=== PATIENT | female | born 1945 | race American Indian/Alaskan Native ===

== ENCOUNTER 2017-02-05 | Emergency (ER) | payer MEDICARE ==
[2017-02-05 01:30] LABS: Hematocrit 47.3 % (30.3-42.9); Hemoglobin 15.6 gm/dl (10.1-14.3); Mean Corpuscular HGB Conc 33 % (30-34); Mean Corpuscular Hemoglobin 29 pg (28-32); Mean Corpuscular Volume 87 fl (79-97); Platelet Count 124 K/mm3 (140-440); Red Blood Count 5.41 M/mm3 (3.65-5.03); Red Cell Distribution Width 13.5 % (13.2-15.2); White Blood Count 2.5 K/mm3 (4.5-11.0)
[2017-02-05 01:38] LABS: Anion Gap 17 mmol/L; BUN/Creatinine Ratio 6.66; Blood Urea Nitrogen 6 mg/dL (7-17); Calcium 8.5 mg/dL (8.4-10.2); Carbon Dioxide 26 mmol/L (22-30); Chloride 97.5 mmol/L (98-107); Glucose 92 mg/dL (65-100); Potassium 3.4 mmol/L (3.6-5.0); Sodium 137 mmol/L (137-145)
[2017-02-05 03:42] LABS: Basophils % (Manual) 0 % (0.0-1.8); Blastocytes % (Manual) 0 %; Diff Status Complete; Eosinophils % (Manual) 0 % (0.0-4.3); Platelet Estimate Appears Decreased; RBC Morphology Normal
--- NOTE | 2017-02-05 04:34 | Emergency Department Report ---
HPI - General Chief Complaint: Upper Respiratory Infection Time Seen by Provider: 02/05/17 04:12 - HPI HPI: This is a 71-year-old female who presents to the emergency department from home with complaint of a 3 day history of sinus congestion and drainage and a productive cough. She denies any fever, chest pain, shortness of breath, back pain. The patient says that the same set of symptoms happens every year due to allergies and usually she is able to get in to see her physician, Dr. Franklin, but she "let it go on to long this time." Patient has been using some Flonase and Claritin. The Claritin seems to help but does not resolve her symptoms. No recent travel or sick contacts at home. She has a past medical history of arthritis, remote asthma, GERD, hypertension. She denies any history of CA, CVA , PE/DVT. ED Past Medical Hx - Past Medical History Previous Medical History?: Yes Hx Hypertension: Yes Hx GERD: Yes Hx Arthritis: Yes Hx Seizures: No Hx Asthma: Yes (no problem in 1 year) Hx HIV: No - Surgical History Past Surgical History?: Yes Hx Breast Surgery: Yes (LEFT BREAST LUMPECTOMY) Additional Surgical History: hysterectomy - Social History Smoking Status: Never Smoker Substance Use Type: None - Medications Home Medications: Home Medications Medication Instructions Recorded Confirmed Last Taken Type amLODIPine [Norvasc] 10 mg PO DAILY 05/14/14 11/26/15 11/25/15 History Meloxicam 7.5 mg PO PRN PRN 11/18/15 11/26/15 11/24/15 History Caplet 1 cap PO DAILY 11/18/15 11/26/15 11/24/15 History Benzonatate [Tessalon Perles] 100 mg PO Q8HR PRN #20 capsule 02/05/17 Unknown Rx ED Review of Systems ROS: Stated complaint: SINUS ROBERTS, CHILLS Other details as noted in HPI Comment: All other systems reviewed and negative Constitutional: denies: chills, fever Eyes: denies: eye pain, eye discharge, vision change ENT: congestion. denies: throat pain Respiratory: cough. denies: shortness of breath Cardiovascular: denies: chest pain, palpitations Gastrointestinal: denies: abdominal pain, nausea, diarrhea Genitourinary: denies: urgency, dysuria, discharge Musculoskeletal: denies: back pain, joint swelling, arthralgia Skin: denies: rash, lesions Neurological: denies: headache, weakness, paresthesias Physical Exam - Physical Exam Vital Signs: Vital Signs 02/05/17 02/05/17 00:19 03:25 Temperature 98.4 F 98.5 F Pulse Rate 68 78 Respiratory 18 16 Rate Blood Pressure 144/82 Blood Pressure 149/75 [Right] O2 Sat by Pulse 99 96 Oximetry Physical Exam: GENERAL: The patient is well-developed well-nourished. HEENT: Normocephalic. Atraumatic. Extraocular motions are intact. Patient has moist mucous membranes. Pupils equal reactive to light bilaterally. Patient has clear drainage coming from the bilateral nares and is constantly sniffing. Oropharynx is clear. NECK: Supple. Trachea is midline. CHEST/LUNGS: Clear to auscultation. No tachypnea or accessory muscle use. There is a productive sounding cough heard during examination. There is no respiratory distress noted. HEART/CARDIOVASCULAR: Regular. There is no tachycardia. There is no gallop rub or murmur. ABDOMEN: Abdomen is soft, nontender. Patient has normal bowel sounds. There is no abdominal distention. SKIN: Skin is warm and dry. NEURO: The patient is awake, alert, and oriented. The patient is cooperative. The patient has no focal neurologic deficits. The patient has normal speech. MUSCULOSKELETAL: There is no tenderness or deformity. There is no limitation range of motion. There is no evidence of acute injury. ED Course Vital Signs 02/05/17 02/05/17 00:19 03:25 Temperature 98.4 F 98.5 F Pulse Rate 68 78 Respiratory 18 16 Rate Blood Pressure 144/82 Blood Pressure 149/75 [Right] O2 Sat by Pulse 99 96 Oximetry ED Medical Decision Making - Lab Data Result diagrams: 02/05/17 00:46 02/05/17 00:46 - EKG Data -: EKG Interpreted by Id EKG shows normal: sinus rhythm, axis, intervals, QRS complexes, ST-T waves (T wave inversions to leads V4 and V5) Rate: normal - EKG Data When compared to previous EKG there are: changes noted (t wave inversions to leads v4 and v5) Interpretation: other (sinus rhythm, normal axis, T-wave inversions in lead V4 and V5, no ST elevation CA) - Radiology Data Radiology results: image reviewed interpreted by me: Chest x-ray did not show any acute process. Heart is normal shape and size. No effusions. No pneumothorax. No signs of pneumonia seen. - Medical Decision Making 71-year-old female presents with 3 day history of sinus drainage and congestion and a productive cough. Patient denies any chest pain or significant shortness of breath. Patient's EKG does not show any signs of ST elevation CA. Chest x- ray does not show any pneumonia or any other acute process. Patient's labs and an unremarkable including a negative troponin. Patient is adamant that she is having either a sinus infection or a response to environmental allergies. Patient is already on low days and Claritin. She was given a dose of steroids to help with some of her chest inflammation and sinus inflammation. I do not believe the patient needs antibiotics at this time. Vital signs are stable including being afebrile. We discussed picking up Coricidin HBP. She will follow-up with Dr. Jamie ewing today and will return to the ER with any worsening of her symptoms or any acute distress. - Differential Diagnosis sinusitis, pneumonia, viral syndrome, asthma, bronchitis Critical Care Time: No Critical care attestation.: If time is entered above; I have spent that time in minutes in the direct care of this critically ill patient, excluding procedure time. ED Disposition Clinical Impression: Sinus congestion, Sinus drainage, Cough Allergic rhinitis Qualifiers: Allergic rhinitis seasonality: seasonal Allergic rhinitis trigger: unspecified Qualified Code(s): J30.2 - Other seasonal allergic rhinitis Disposition: DISCHARGED TO HOME OR SELFCARE Is pt being admited?: No Condition: Stable Instructions: Allergic Rhinitis (ED), Bronchospasm (ED), Sinusitis (ED) Additional Instructions: Please follow-up with Dr. Muriel ewing today. Continue with your Flonase and Claritin. I have written you for a cough medication to try. Return to the emergency department with any intractable fever, shortness of breath, chest pain , or any acute distress. Prescriptions: Benzonatate [Tessalon Perles] 100 mg PO Q8HR PRN #20 capsule PRN Reason: Cough Referrals: RONDA FRANKLIN MD [Primary Care Provider] - 3-5 Days Time of Disposition: 04:45
[2017-02-05 05:49] VITALS: BP 138/72
--- NOTE | 2017-02-05 08:46 | XRay Report ---
Chest 2 views: Compared to 04/11/15. The History: Cough. Findings: Normal cardiomediastinal silhouette the trachea is midline. Circumscribed nodular density right upper lobe without interval change. Mild COPD. Impression: No significant interval change. The
== END 2017-02-05 05:49 | disposition home or self-care (01) ==
LOC: ED
DX: J34.89 Other specified disorders of nose and nasal sinuses (principal); R09.81 Nasal congestion; J30.2 Other seasonal allergic rhinitis; R05 Cough; I10 Essential (primary) hypertension; K21.9 Gastro-esophageal reflux disease without esophagitis; M19.90 Unspecified osteoarthritis, unspecified site; J45.909 Unspecified asthma, uncomplicated; Z90.710 Acquired absence of both cervix and uterus
CPT/HCPCS: 36415; 71020; 80048; 84484; 85007; 85025; 93005; 93010; 96372; 99285; J2930

== ENCOUNTER 2017-02-13 12:51 | Outpatient (CLI) | payer MEDICARE ==
--- NOTE | 2017-02-13 14:32 | Mammography Report ---
BILATERAL MAMMOGRAM: FINDINGS: The breast tissue is heterogeneously dense, which could obscure detection of small masses (approximately 50%-75% glandular). No mass, distortion, suspicious calcification, or skin change is seen. There are no significant changes when compared to her prior examination in April 2014. CAD was utilized. IMPRESSION: Negative mammogram. There is no mammographic evidence of malignancy. RECOMMENDATION: Follow-up per ACS guidelines. BI-RADS CATEGORY: 1 = Negative ACR BI-RADS MAMMOGRAPHIC CODES: 0 = Needs additional imaging evaluation; 1 = Negative; 2 = Benign; 3 = Probably benign; 4 = Suspicious; 5 = Malignant; 6 = Known biopsy-proven malignancy COMMENT: 1. Dense breast tissue, i.e., adenosis, fibrocystic changes, etc., may obscure an underlying neoplasm. 2. Approximately 10% of cancers are not detected with mammography. 3. A negative mammography report should not delay biopsy if a clinically suspicious mass is present. COMMENT: Patient follow-up letters are generated in [employer].
== END 2017-02-13 12:52 | disposition home or self-care (01) ==
LOC: MAMMO 12:51
PROVIDERS: ATTEND Obstetrics & Gynecology Gynecology
DX: Z12.31 Encounter for screening mammogram for malignant neoplasm of breast (principal)
CPT/HCPCS: 77067; G0202

== ENCOUNTER 2019-07-19 14:46 | Emergency (ER) | payer MEDICARE ==
[2019-07-19] MEDS ORDERED: SUBLIMAZE IV ONE ×2 (15:44→19:00)
--- NOTE | 2019-07-19 15:54 | XRay Report ---
AP VIEW RIGHT KNEE INDICATION: Pain in the right knee. COMPARISON: No relevant prior imaging study available. FINDINGS: On this single portable view, no acute, displaced fracture is identified. Advanced osteoarthrosis is seen at the medial and lateral tibiofemoral compartments. IMPRESSION: 1. Limited study. No acute fracture is identified. Complete exam with oblique and lateral views woul d be useful. Signer Name: Gui Seth MD Signed: 07/19/2019 3:50 PM Workstation Name: [id number]
--- NOTE | 2019-07-19 16:10 | Emergency Department Report ---
ED General Adult HPI - General Chief complaint: Extremity Injury, Lower Stated complaint: R KNEE PAIN Time Seen by Provider: 07/19/19 15:44 Source: patient, EMS Mode of arrival: Stretcher Limitations: No Limitations - History of Present Illness Initial comments: 74-year-old female who states that she was sitting on the floor and when she got up she felt her knee pop. She complains of excruciating right knee pain. She mentioned some degree of burning from her right hip to her toe but did not specifically complain of hip pain to me. She does not report any other injury or complaint. -: Sudden Severity scale (0 -10): 10 Quality: aching - Related Data Home Medications Medication Instructions Recorded Confirmed Last Taken amLODIPine [Norvasc] 10 mg PO DAILY 05/14/14 11/26/15 11/25/15 Meloxicam 7.5 mg PO PRN PRN 11/18/15 11/26/15 11/24/15 Caplet 1 cap PO DAILY 11/18/15 11/26/15 11/24/15 Previous Rx's Medication Instructions Recorded Last Taken Type Benzonatate [Tessalon Perles] 100 mg PO Q8HR PRN #20 capsule 02/05/17 Unknown Rx Allergies Allergy/AdvReac Type Severity Reaction Status Date / Time ampicillin Allergy Swelling Verified 11/18/15 12:29 cephalexin Allergy Swelling Verified 11/18/15 12:29 lisinopril Allergy Angioedema Verified 11/18/15 12:29 oxycodone Allergy Swelling Verified 11/18/15 12:29 Penicillins Allergy Swelling Unverified 04/06/14 11:34 Sulfa (Sulfonamide Allergy Hives Unverified 04/06/14 11:34 Antibiotics) ED Review of Systems ROS: Stated complaint: R KNEE PAIN Other details as noted in HPI Comment: Unobtainable due to pts medical conditions (patient is too anxious for full history) ED Past Medical Hx - Past Medical History Hx Hypertension: Yes Hx GERD: Yes Hx Arthritis: Yes Hx Seizures: No Hx Asthma: Yes (no problem in 1 year) Hx HIV: No - Surgical History Hx Breast Surgery: Yes (LEFT BREAST LUMPECTOMY) Additional Surgical History: hysterectomy - Social History Smoking Status: Current Every Day Smoker Substance Use Type: Alcohol - Medications Home Medications: Home Medications Medication Instructions Recorded Confirmed Last Taken Type amLODIPine [Norvasc] 10 mg PO DAILY 05/14/14 11/26/15 11/25/15 History Meloxicam 7.5 mg PO PRN PRN 11/18/15 11/26/15 11/24/15 History Caplet 1 cap PO DAILY 11/18/15 11/26/15 11/24/15 History Benzonatate [Tessalon Perles] 100 mg PO Q8HR PRN #20 capsule 02/05/17 Unknown Rx ED Physical Exam - General Limitations: Physical Limitation, Other General appearance: alert, in no apparent distress - Head Head exam: Present: atraumatic, normocephalic - Eye Eye exam: Present: normal appearance. Absent: scleral icterus - ENT ENT exam: Present: mucous membranes moist - Neck Neck exam: Present: normal inspection - Respiratory Respiratory exam: Present: normal lung sounds bilaterally. Absent: respiratory distress - Cardiovascular Cardiovascular Exam: Present: regular rate, normal rhythm. Absent: systolic murmur, diastolic murmur, rubs, gallop - GI/Abdominal GI/Abdominal exam: Present: soft, normal bowel sounds. Absent: distended, tenderness, guarding, rebound - Extremities Exam Extremities exam: Present: other (patient is holding her right knee flexed position. However the patella appears to be midline and the hip has a full range of motion. There is no gross knee effusion.) - Neurological Exam Neurological exam: Present: alert, oriented X3, CN II-XII intact. Absent: motor sensory deficit - Psychiatric Psychiatric exam: Present: agitated (somewhat), anxious - Skin Skin exam: Present: warm, dry, intact, normal color. Absent: rash ED Course Vital Signs 07/19/19 15:25 Temperature 98.4 F Pulse Rate 83 Respiratory 19 Rate Blood Pressure 129/72 [Left] O2 Sat by Pulse 99 Oximetry - Reevaluation(s) Reevaluation #1: Patient states that she still has mild residual pain. She looks entirely comfortable. She has full range of motion of her knee which is apparently stable and without deformity. There is no obvious ligamentous injury. There is mild soft tissue swelling. I didn't see anything apparent on her CT images. Awaiting radiology interpret ation. 07/19/19 19:01 Critical care attestation.: If time is entered above; I have spent that time in minutes in the direct care of this critically ill patient, excluding procedure time. ED Disposition Condition: Stable
--- NOTE | 2019-07-19 19:04 | Cat Scan Report ---
CT right femur without contrast INDICATION : fall pain hip to knee. TECHNIQUE: Axial imaging performed through the right femur without the use of contrast. All CT scan s at this location are performed using CT dose reduction for ALARA by means of automated exposure con trol. COMPARISON: Right knee series from today FINDINGS: Each of the series is excluding portions of both the right hip and right knee. Within these constraints, no gross right hip or knee fracture is identified. There is advanced tricompartmental D GREGG in the knee with no joint effusion. Mild degenerative changes present in the hip. No acute musculo tendinous abnormality identified. Moderate multifocal atherosclerotic disease is present throughout t he SFA and [employer]NAGER [employer]. IMPRESSION: 1. Limited exam as above with no acute abnormality identified. If there is persistent pain, recommend MRI follow-up of a specific joint. 2. Degenerative changes greatest in the knee. Signer Name: Pritesh Modi MD Signed: 07/19/2019 6:59 PM Workstation Name: [id number]
--- NOTE | 2019-07-19 19:17 | Emergency Department Report ---
ED General Adult HPI - General Chief complaint: Extremity Injury, Lower Stated complaint: R KNEE PAIN Time Seen by Provider: 07/19/19 15:44 Source: patient, EMS Mode of arrival: Stretcher Limitations: Physical Limitation, Other - History of Present Illness Initial comments: 74-year-old female states she was sitting on the floor and tried to get up. She experienced her knee popping and excruciating pain. She had a vague sensation of burning from her hip to her toes but did not complain of any back discomfort whatsoever. Severity scale (0 -10): 10 Quality: aching - Related Data Home Medications Medication Instructions Recorded Confirmed Last Taken amLODIPine [Norvasc] 10 mg PO DAILY 05/14/14 11/26/15 11/25/15 Meloxicam 7.5 mg PO PRN PRN 11/18/15 11/26/15 11/24/15 Caplet 1 cap PO DAILY 11/18/15 11/26/15 11/24/15 Previous Rx's Medication Instructions Recorded Last Taken Type Benzonatate [Tessalon Perles] 100 mg PO Q8HR PRN #20 capsule 02/05/17 Unknown Rx traMADol [Ultram] 50 mg PO Q6HR PRN #14 tablet 07/19/19 Unknown Rx Allergies Allergy/AdvReac Type Severity Reaction Status Date / Time ampicillin Allergy Swelling Verified 11/18/15 12:29 cephalexin Allergy Swelling Verified 11/18/15 12:29 lisinopril Allergy Angioedema Verified 11/18/15 12:29 oxycodone Allergy Swelling Verified 11/18/15 12:29 Penicillins Allergy Swelling Unverified 04/06/14 11:34 Sulfa (Sulfonamide Allergy Hives Unverified 04/06/14 11:34 Antibiotics) ED Review of Systems ROS: Stated complaint: R KNEE PAIN Other details as noted in HPI ED Past Medical Hx - Past Medical History Hx Hypertension: Yes Hx GERD: Yes Hx Arthritis: Yes Hx Seizures: No Hx Asthma: Yes (no problem in 1 year) Hx HIV: No - Surgical History Hx Breast Surgery: Yes (LEFT BREAST LUMPECTOMY) Additional Surgical History: hysterectomy - Social History Smoking Status: Current Every Day Smoker Substance Use Type: Alcohol - Medications Home Medications: Home Medications Medication Instructions Recorded Confirmed Last Taken Type amLODIPine [Norvasc] 10 mg PO DAILY 05/14/14 11/26/15 11/25/15 History Meloxicam 7.5 mg PO PRN PRN 11/18/15 11/26/15 11/24/15 History Caplet 1 cap PO DAILY 11/18/15 11/26/15 11/24/15 History Benzonatate [Tessalon Perles] 100 mg PO Q8HR PRN #20 capsule 02/05/17 Unknown Rx traMADol [Ultram] 50 mg PO Q6HR PRN #14 tablet 07/19/19 Unknown Rx ED Physical Exam - General Limitations: Physical Limitation, Other General appearance: alert, in no apparent distress ED Course Vital Signs 07/19/19 15:25 Temperature 98.4 F Pulse Rate 83 Respiratory 19 Rate Blood Pressure 129/72 [Left] O2 Sat by Pulse 99 Oximetry - Reevaluation(s) Reevaluation #1: It is possible the patient had a spontaneously reduced the dislocation. However she did not present with evidence of a dislocation. Further evaluation with orthopedist is recommended. 07/19/19 19:19 ED Medical Decision Making - Radiology Data Radiology results: report reviewed (CT and x-ray shows no acute process) Critical care attestation.: If time is entered above; I have spent that time in minutes in the direct care of this critically ill patient, excluding procedure time. ED Disposition Clinical Impression: Contusion of right knee Qualifiers: Encounter type: initial encounter Qualified Code(s): S80.01XA - Contusion of right knee, initial encounter Disposition: - TO HOME OR SELFCARE Is pt being admited?: No Does the pt Need Aspirin: No Condition: Stable Instructions: Contusion in Adults (ED) Additional Instructions: Follow-up with orthopedist Dr. Lei. Rx as needed for pain. Return any acute change or problem. Rest knee. Prescriptions: traMADol [Ultram] 50 mg PO Q6HR PRN #14 tablet PRN Reason: Pain Referrals: SUMANTH LEI MD [Staff Physician] - 3-5 Days Time of Disposition: 19:19
[2019-07-19 20:42] VITALS: BP 136/74
== END 2019-07-19 20:30 | disposition home or self-care (01) ==
LOC: ED 14:46
DX: S80.01XA Contusion of right knee, initial encounter (principal); I10 Essential (primary) hypertension; K21.9 Gastro-esophageal reflux disease without esophagitis; M19.90 Unspecified osteoarthritis, unspecified site; J45.909 Unspecified asthma, uncomplicated; F17.200 Nicotine dependence, unspecified, uncomplicated; Z90.710 Acquired absence of both cervix and uterus; Z88.1 Allergy status to other antibiotic agents; Z88.0 Allergy status to penicillin; Z88.2 Allergy status to sulfonamides; Z88.8 Allergy status to other drugs, medicaments and biological substances; Z79.899 Other long term (current) drug therapy; X50.9XXA Other and unspecified overexertion or strenuous movements or postures, initial encounter; Y93.89 Activity, other specified; Y92.89 Other specified places as the place of occurrence of the external cause; Y99.8 Other external cause status
CPT/HCPCS: 73560; 73700; 96374; 96376; 99285; J3010

== ENCOUNTER 2019-08-25 09:40 | Outpatient (CLI) | payer MEDICARE ==
--- NOTE | 2019-08-25 10:29 | Cat Scan Report ---
CT CHEST WITHOUT CONTRAST INDICATION / CLINICAL INFORMATION: MASS OF UPPER LOBE OF RIGHT LUNG 786.6. TECHNIQUE: Axial CT images were obtained through the chest without contrast. Sagittal and coronal reformatted im ages. All CT scans at this location are performed using CT dose reduction for ALARA by means of autom ated exposure control. COMPARISON: Chest x-ray dated 02/05/2017 FINDINGS: HEART: The heart is normal size. No pericardial abnormality. Mild coronary artery and aortic valve ca lcifications are noted. THORACIC AORTA: No significant abnormality. Mild scattered atherosclerotic plaques. MEDIASTINUM and LUCY: No significant abnormality. LUNGS: No acute air space or interstitial disease. Partially calcified 9 mm granuloma in the right u pper lobe is noted. No suspicious pulmonary nodule or mass. PLEURA: No significant pleural effusion. No pneumothorax. SKELETAL SYSTEM: Intact. Mild to moderate multilevel thoracic spondylosis. No fracture or suspicious bony lesion. UPPER ABDOMEN: No significant abnormality. ADDITIONAL FINDINGS: None. IMPRESSION: Right upper lobe partially calcified granuloma measuring 9 mm. No suspicious pulmonary nodule or mas s is identified. Signer Name: Reji Guo Jr, MD Signed: 08/25/2019 10:25 AM Workstation Name: [id number]
== END 2019-08-25 09:41 | disposition home or self-care (01) ==
LOC: CT 09:40
PROVIDERS: ATTEND Internal Medicine
DX: I70.0 Atherosclerosis of aorta (principal); I25.10 Atherosclerotic heart disease of native coronary artery without angina pectoris; R91.8 Other nonspecific abnormal finding of lung field; M47.814 Spondylosis without myelopathy or radiculopathy, thoracic region; E78.00 Pure hypercholesterolemia, unspecified; I10 Essential (primary) hypertension; J45.909 Unspecified asthma, uncomplicated; K21.9 Gastro-esophageal reflux disease without esophagitis; Z90.710 Acquired absence of both cervix and uterus
CPT/HCPCS: 71250

== ENCOUNTER 2019-09-29 22:37 | Emergency (ER) | payer MEDICARE ==
[2019-09-29] MEDS ORDERED: ASPIRIN 325 MG TAB PO ONE (23:36)
[2019-09-30 00:20] LABS: Basophils # (Auto) 0.1 K/mm3 (0.0-0.1); Basophils % (Auto) 1.5 % (0.0-1.8); Eosinophils # (Auto) 0.3 K/mm3 (0.0-0.4); Eosinophils % (Auto) 6.9 % (0.0-4.3); Hematocrit 40.1 % (30.3-42.9); Hemoglobin 13.7 gm/dl (10.1-14.3); Lymphocytes # (Auto) 1.5 K/mm3 (1.2-5.4); Lymphocytes % (Auto) 32.1 % (13.4-35.0); Mean Corpuscular HGB Conc 34 % (30-34); Mean Corpuscular Volume 88 fl (79-97); Monocytes # (Auto) 0.4 K/mm3 (0.0-0.8); Monocytes % (Auto) 9.4 % (0.0-7.3); Platelet Count 180 K/mm3 (140-440); Red Blood Count 4.54 M/mm3 (3.65-5.03); Red Cell Distribution Width 13.4 % (13.2-15.2)
--- NOTE | 2019-09-30 00:26 | XRay Report ---
CHEST 1 VIEW, 09/30/2019 12:03 AM CLINICAL INFORMATION/INDICATION: Right-sided chest pain for 5 days COMPARISON: Chest radiograph, 02/05/2017 FINDINGS: SUPPORT DEVICES: None. HEART: The cardiac silhouette is normal in size. LUNGS/PLEURA: The lungs are hyperexpanded with chronic interstitial change. No superimposed airspace consolidation or pleural effusion is identified. ADDITIONAL FINDINGS: No additional acute findings. IMPRESSION: 1. No evidence of acute cardiopulmonary process. Signer Name: Anusha Max MD Signed: 09/30/2019 12:22 AM Workstation Name: [id number]
[2019-09-30 00:34] LABS: BUN/Creatinine Ratio 17; Blood Urea Nitrogen 19 mg/dL (7-17); Hemolysis Index 3
[2019-09-30] MEDS ORDERED: traMADol 50 MG TAB PO ONE (01:03)
--- NOTE | 2019-09-30 02:10 | Cat Scan Report ---
CTA CHEST WITH IV CONTRAST, 09/30/2019 INDICATION: Chest pain TECHNIQUE: Axial CT images were obtained through the chest after injection of IV contrast. Coronal oblique 2-D reconstruction images were produced. 3 plane MIP reconstruction images were produced at an [employer] workstation. All CTs at this facility utilize dose reduction techniques including automated expos ure control, iterative reconstruction and weight based dosing when appropriate to reduce patient radi ation dose to as low as reasonable achievable. COMPARISON: CT of the chest without contrast, 08/25/2019 FINDINGS: There is no evidence of central or segmental filling defect within the pulmonary arteries to suggest pulmonary embolism. The heart is normal in size. The thoracic aorta is normal in caliber. Evaluation of the lung parenchyma demonstrates no evidence of acute airspace disease or pleural effusion. The 9 mm right upper lobe mass is again noted and contains a speck of calcium. Limited imaging of the upper abdomen demonstrates a small hiatal hernia. Evaluation of bony structures demonstrates no evidence of acute bony abnormality. There are moderate bony degenerative changes and kyphosis of the thoracic spine. IMPRESSION: 1. No evidence of pulmonary embolism or acute parenchymal process. 2. Subcentimeter right upper lobe nodule containing calcium which is favored to represent a benign pr ocess such as a partially calcified granuloma. Signer Name: Anusha Max MD Signed: 09/30/2019 2:06 AM Workstation Name: [id number]
--- NOTE | 2019-09-30 02:33 | Emergency Department Report ---
ED Chest Pain HPI - General Chief Complaint: Chest Pain Stated Complaint: CHEST PAIN Time Seen by Provider: 09/30/19 01:01 Source: patient Mode of arrival: Ambulatory Limitations: No Limitations - History of Present Illness Initial Comments: Mrs. Orozco is a 74 yo female with history of hypertension and marijuana use who presents with right-sided chest pain and back pain for the past week. Pain began in her right upper back rating to the right chest. Changes with movement. 5/10 in severity. Achy sharp in nature. She has a dry nonproductive cough. PCP is Dr. Ronda Franklin. Complaint: chest pain -: Gradual, week(s) (1) Onset: during rest Pain Location: right chest Pain Radiation: back Severity: mild Severity scale (0 -10): 5 Quality: aching, sharp, dull Consistency: constant Improves With: nothing Worsens With: movement - Related Data Home Medications Medication Instructions Recorded Confirmed Last Taken amLODIPine 10 mg PO DAILY 05/14/14 11/26/15 11/25/15 Meloxicam 7.5 mg PO PRN PRN 11/18/15 11/26/15 11/24/15 Caplet 1 cap PO DAILY 11/18/15 11/26/15 11/24/15 Previous Rx's Medication Instructions Recorded Last Taken Type Benzonatate [Tessalon Perles] 100 mg PO Q8HR PRN #20 capsule 02/05/17 Unknown Rx traMADoL [Ultram] 50 mg PO Q6HR PRN #14 tablet 07/19/19 Unknown Rx traMADoL [Ultram 50 MG tab] 50 mg PO Q6HR PRN #10 tablet 09/30/19 Unknown Rx Allergies Allergy/AdvReac Type Severity Reaction Status Date / Time ampicillin Allergy Swelling Verified 09/30/19 01:17 aspirin Allergy Hives Verified 09/30/19 01:17 cephalexin Allergy Swelling Verified 09/30/19 01:17 lisinopril Allergy Angioedema Verified 09/30/19 01:17 oxycodone Allergy Swelling Verified 09/30/19 01:17 Penicillins Allergy Swelling Unverified 09/30/19 01:17 Sulfa (Sulfonamide Allergy Hives Unverified 09/30/19 01:17 Antibiotics) Heart Score - HEART Score History: Slightly suspicious EKG: Normal Age: 45-65 Risk factors: 1-2 risk factors Troponin: < normal limit HEART Score: 2 ED Review of Systems ROS: Stated complaint: CHEST PAIN Other details as noted in HPI Comment: All other systems reviewed and negative Constitutional: denies: fever, malaise Respiratory: cough. denies: shortness of breath Cardiovascular: chest pain ED Past Medical Hx - Past Medical History Previous Medical History?: Yes Hx Hypertension: Yes Hx GERD: Yes Hx Arthritis: Yes Hx Seizures: No Hx Asthma: Yes (no problem in 1 year) Hx HIV: No - Surgical History Hx Breast Surgery: Yes (Right breast Lumpectomy) Additional Surgical History: hysterectomy - Social History Smoking Status: Current Every Day Smoker Substance Use Type: Marijuana - Medications Home Medications: Home Medications Medication Instructions Recorded Confirmed Last Taken Type amLODIPine 10 mg PO DAILY 05/14/14 11/26/15 11/25/15 History Meloxicam 7.5 mg PO PRN PRN 11/18/15 11/26/15 11/24/15 History Caplet 1 cap PO DAILY 11/18/15 11/26/15 11/24/15 History Benzonatate [Tessalon Perles] 100 mg PO Q8HR PRN #20 capsule 02/05/17 Unknown Rx traMADoL [Ultram] 50 mg PO Q6HR PRN #14 tablet 07/19/19 Unknown Rx traMADoL [Ultram 50 MG tab] 50 mg PO Q6HR PRN #10 tablet 09/30/19 Unknown Rx ED Physical Exam - General Limitations: No Limitations General appearance: alert, in no apparent distress, other (looks younger than stated age) - Head Head exam: Present: atraumatic, normocephalic - Eye Eye exam: Present: normal appearance - ENT ENT exam: Present: mucous membranes moist - Neck Neck exam: Present: normal inspection, full ROM - Respiratory Respiratory exam: Present: normal lung sounds bilaterally. Absent: respiratory distress, wheezes, rales, rhonchi - Cardiovascular Cardiovascular Exam: Present: regular rate, normal rhythm, normal heart sounds. Absent: systolic murmur, diastolic murmur, rubs, gallop - GI/Abdominal GI/Abdominal exam: Present: soft, normal bowel sounds. Absent: distended, tenderness, guarding, rebound - Extremities Exam Extremities exam: Present: normal inspection - Neurological Exam Neurological exam: Present: alert, oriented X3 - Psychiatric Psychiatric exam: Present: normal affect, normal mood - Skin Skin exam: Present: warm, dry, intact, normal color. Absent: rash ED Course Vital Signs 09/29/19 09/29/19 22:50 23:33 Temperature 98.5 F 98.5 F Pulse Rate 68 68 Respiratory 18 18 Rate Blood Pressure 142/62 142/62 O2 Sat by Pulse 100 100 Oximetry ED Medical Decision Making - Lab Data Result diagrams: 09/29/19 23:50 09/29/19 23:50 Laboratory Results - last 24 hr 09/29/19 09/29/19 23:50 23:50 WBC 4.5 RBC 4.54 Hgb 13.7 Hct 40.1 MCV 88 MCH 30 MCHC 34 RDW 13.4 Plt Count 180 Lymph % (Auto) 32.1 Henry % (Auto) 9.4 H Eos % (Auto) 6.9 H Baso % (Auto) 1.5 Lymph # 1.5 Henry # 0.4 Eos # 0.3 Baso # 0.1 Seg Neutrophils % 50.1 Seg Neutrophils # 2.3 Sodium 140 Potassium 4.3 Chloride 103.2 Carbon Dioxide 26 Anion Gap 15 BUN 19 H Creatinine 1.1 Estimated GFR 59 BUN/Creatinine Ratio 17 Glucose 102 H Troponin T < 0.010 - EKG Data EKG shows normal: sinus rhythm, axis, intervals, QRS complexes, ST-T waves Rate: normal - EKG Data Interpretation: normal EKG - Radiology Data Radiology results: report reviewed CT angiogram which has no evidence of pulmonary embolism or acute parenchymal process, lung nodule right upper lobe - Medical Decision Making 1. Right-sided chest pain back pain atypical for acute coronary syndrome. Heart score is 1. Normal chest x-ray. Troponin level [address] angiogram without evidence of venous thrombolic embolism Small lung nodule seen. Given reassurance. Prescribed tramadol. For musculoskeletal pain Referred to Dr. Franklin for further treatment and evaluation. Prescribed tramadol for pain. No indication of pneumonia, pneumothorax, pulmonary embolism, aortic dissection acute coronary syndrome. Critical care attestation.: If time is entered above; I have spent that time in minutes in the direct care of this critically ill patient, excluding procedure time. ED Disposition Clinical Impression: Right-sided chest wall pain, Back pain, Lung nodule Disposition: TO HOME OR SELFCARE Is pt being admited?: No Does the pt Need Aspirin: No Condition: Stable Instructions: Chest Pain (ED) Additional Instructions: You have a small likely benign lung nodule on the right upper lobe. He will need a repeat chest x-ray in 3 months. Prescriptions: traMADoL [Ultram 50 MG tab] 50 mg PO Q6HR PRN #10 tablet PRN Reason: Pain Referrals: RONDA FRANKLIN MD [Staff Physician] - 3-5 Days
[2019-09-30 03:46] VITALS: BP 138/75
== END 2019-09-30 03:10 | disposition home or self-care (01) ==
LOC: ED 22:37
DX: R07.89 Other chest pain (principal); M54.9 Dorsalgia, unspecified; R91.8 Other nonspecific abnormal finding of lung field; I10 Essential (primary) hypertension; K21.9 Gastro-esophageal reflux disease without esophagitis; M19.90 Unspecified osteoarthritis, unspecified site; J45.909 Unspecified asthma, uncomplicated; F17.200 Nicotine dependence, unspecified, uncomplicated; F12.10 Cannabis abuse, uncomplicated; Z79.899 Other long term (current) drug therapy; Z98.890 Other specified postprocedural states; Z88.0 Allergy status to penicillin; Z88.2 Allergy status to sulfonamides; Z88.1 Allergy status to other antibiotic agents; Z88.8 Allergy status to other drugs, medicaments and biological substances
CPT/HCPCS: 36415; 71045; 71275; 80048; 84484; 85025; 93005; 93010; 99285; Q9967

== ENCOUNTER 2020-04-06 08:08 | Emergency (ER) | payer MEDICARE ==
[2020-04-06 08:16] VITALS: BP 152/70
--- NOTE | 2020-04-06 09:19 | XRay Report ---
RIGHT KNEE 3 VIEWS INDICATION / CLINICAL INFORMATION: pain, decreased ROM, swelling COMPARISON: 11/18/2018 FINDINGS: BONES / JOINT(S): There is degenerative change involving all 3 compartments. The degree of degenerati on appears similar to the prior study from July 2019. No fracture or dislocation is seen. SOFT TISSUES: No significant abnormality. ADDITIONAL FINDINGS: None. Signer Name: Cristhian Al MD Signed: 04/06/2020 9:15 AM Workstation Name: [id number]
--- NOTE | 2020-04-06 10:58 | Emergency Department Report ---
ED Lower Extremity HPI - General Chief Complaint: Extremity Injury, Lower Stated Complaint: FALL Time Seen by Provider: 04/06/20 10:18 Source: patient Mode of arrival: Ambulatory Limitations: No Limitations - History of Present Illness Initial Comments: 75-year-old F Bur[place] female that emerge department complaining of reemergence of her right knee pain started after she got out of the bed quickly. Reports no numbness or tingling, no fevers, chills, sweats, no lower extremity swelling MD Complaint: knee injury -: Gradual Injury: Knee: Right Type of Injury: unknown Place: home Severity: mild, moderate Worsens With: weight bearing Associated Symptoms: able to partially bear weight - Related Data Home Medications Medication Instructions Recorded Confirmed Last Taken amLODIPine 10 mg PO DAILY 05/14/14 11/26/15 11/25/15 Meloxicam 7.5 mg PO PRN PRN 11/18/15 11/26/15 11/24/15 Caplet 1 cap PO DAILY 11/18/15 11/26/15 11/24/15 Previous Rx's Medication Instructions Recorded Last Taken Type Benzonatate [Tessalon Perles] 100 mg PO Q8HR PRN #20 capsule 02/05/17 Unknown Rx traMADoL [Ultram 50 MG tab] 50 mg PO Q6HR PRN #10 tablet 09/30/19 Unknown Rx predniSONE [Deltasone] 20 mg PO QDAY #5 tab 04/06/20 Unknown Rx traMADoL [Ultram 50 MG tab] 50 mg PO Q6HR PRN #14 tablet 04/06/20 Unknown Rx Allergies Allergy/AdvReac Type Severity Reaction Status Date / Time ampicillin Allergy Swelling Verified 09/30/19 01:17 aspirin Allergy Hives Verified 09/30/19 01:17 cephalexin Allergy Swelling Verified 09/30/19 01:17 lisinopril Allergy Angioedema Verified 09/30/19 01:17 oxycodone Allergy Swelling Verified 09/30/19 01:17 Penicillins Allergy Swelling Unverified 09/30/19 01:17 Sulfa (Sulfonamide Allergy Hives Unverified 09/30/19 01:17 Antibiotics) ED Review of Systems ROS: Stated complaint: FALL Other details as noted in HPI Comment: All other systems reviewed and negative ED Past Medical Hx - Past Medical History Previous Medical History?: Yes Hx Hypertension: Yes Hx GERD: Yes Hx Arthritis: Yes Hx Seizures: No Hx Asthma: Yes (no problem in 1 year) Hx HIV: No - Surgical History Past Surgical History?: Yes Hx Breast Surgery: Yes (Right breast Lumpectomy) Additional Surgical History: hysterectomy - Social History Smoking Status: Never Smoker Substance Use Type: Marijuana - Medications Home Medications: Home Medications Medication Instructions Recorded Confirmed Last Taken Type amLODIPine 10 mg PO DAILY 05/14/14 11/26/15 11/25/15 History Meloxicam 7.5 mg PO PRN PRN 11/18/15 11/26/15 11/24/15 History Caplet 1 cap PO DAILY 11/18/15 11/26/15 11/24/15 History Benzonatate [Tessalon Perles] 100 mg PO Q8HR PRN #20 capsule 02/05/17 Unknown Rx traMADoL [Ultram 50 MG tab] 50 mg PO Q6HR PRN #10 tablet 09/30/19 Unknown Rx predniSONE [Deltasone] 20 mg PO QDAY #5 tab 04/06/20 Unknown Rx traMADoL [Ultram 50 MG tab] 50 mg PO Q6HR PRN #14 tablet 04/06/20 Unknown Rx ED Physical Exam - General Limitations: No Limitations General appearance: alert, in no apparent distress - Head Head exam: Present: atraumatic, normocephalic - Eye Eye exam: Present: normal appearance, PERRL Pupils: Present: normal accommodation - ENT ENT exam: Present: normal exam, normal orophraynx, mucous membranes moist - Neck Neck exam: Present: normal inspection - Respiratory Respiratory exam: Present: normal lung sounds bilaterally. Absent: respiratory distress - Cardiovascular Cardiovascular Exam: Present: regular rate, normal rhythm. Absent: systolic murmur, diastolic murmur, rubs, gallop - GI/Abdominal GI/Abdominal exam: Present: soft, normal bowel sounds - Extremities Exam Extremities exam: Present: normal inspection, tenderness (Right knee there is some crepitus with range of motion normal varus and valgus drawer test is negative. No effusion noted no ecchymosis. Pulses 2+) - Back Exam Back exam: Present: normal inspection - Neurological Exam Neurological exam: Present: alert, oriented X3 - Psychiatric Psychiatric exam: Present: normal affect, normal mood - Skin Skin exam: Present: warm, dry, intact, normal color. Absent: rash ED Course Vital Signs 04/06/20 08:14 Temperature 98.4 F Pulse Rate 70 Respiratory 18 Rate Blood Pressure 152/70 O2 Sat by Pulse 100 Oximetry Critical care attestation.: If time is entered above; I have spent that time in minutes in the direct care of this critically ill patient, excluding procedure time. ED Disposition Clinical Impression: Chronic knee pain Disposition: - TO HOME OR SELFCARE Is pt being admited?: No Does the pt Need Aspirin: No Condition: Stable Instructions: Arthralgia (ED) Prescriptions: predniSONE [Deltasone] 20 mg PO QDAY #5 tab traMADoL [Ultram 50 MG tab] 50 mg PO Q6HR PRN #14 tablet PRN Reason: Pain Referrals: RONDA FRANKLIN MD [Primary Care Provider] - 3-5 Days
== END 2020-04-06 11:32 | disposition home or self-care (01) ==
LOC: ED 08:08
DX: M25.561 Pain in right knee (principal); G89.29 Other chronic pain; I10 Essential (primary) hypertension; K21.9 Gastro-esophageal reflux disease without esophagitis; M13.88 Other specified arthritis, other site; J45.909 Unspecified asthma, uncomplicated; Z79.899 Other long term (current) drug therapy; F12.10 Cannabis abuse, uncomplicated; Z90.710 Acquired absence of both cervix and uterus; Z88.0 Allergy status to penicillin; Z88.1 Allergy status to other antibiotic agents; Z88.6 Allergy status to analgesic agent; Z88.2 Allergy status to sulfonamides
CPT/HCPCS: 99283

== ENCOUNTER 2020-04-13 20:23 | Observation (INO) | payer MEDICARE ==
--- NOTE | 2020-04-13 20:37 | Event Note ---
ED Screening Note Date of service: 04/13/20 Time: 20:33 ED Screening Note: 75-year-old female presents the ED complaining of left-sided numbness that has been ongoing since she had her spinal surgery at the spinal center, Patient states that 20 minutes ago she started experiencing some left-sided chest pain some numbness in her chest. This initial assessment/diagnostic orders/clinical plan/treatment(s) is/are subject to change based on patients health status, clinical progression and re-assessment by fellow clinical providers in the ED. Further treatment and workup at subsequent clinical providers discretion. Patient/guardian urged not to elope from the ED as their condition may be serious if not clinically assessed and managed. Initial orders include: cbc,bmp,trop,cxr main
[2020-04-13 21:06] LABS: Hematocrit 44.9 % (30.3-42.9); Hemoglobin 14.9 gm/dl (10.1-14.3); Mean Corpuscular HGB Conc 33 % (30-34); Mean Corpuscular Volume 88 fl (79-97); Platelet Count 216 K/mm3 (140-440); Red Cell Distribution Width 14.7 % (13.2-15.2)
--- NOTE | 2020-04-13 21:32 | XRay Report ---
CHEST 2 VIEWS, 04/13/2020 9:07 PM INDICATION: Chest pain COMPARISON: Chest radiograph, 09/30/2019 FINDINGS: Support devices: None. Heart: The cardiac silhouette is normal in size. Lungs/pleura: The lungs are clear of focal airspace disease or significant pleural effusion. Additional findings: There are moderate bony and kyphotic changes of the thoracic spine. IMPRESSION: 1. No evidence of acute cardiopulmonary process. Signer Name: Anusha Max MD Signed: 04/13/2020 9:28 PM Workstation Name: [id number]
[2020-04-13 21:33] LABS: BUN/Creatinine Ratio 11; Blood Urea Nitrogen 8 mg/dL (7-17); Calcium 9.2 mg/dL (8.4-10.2); Hemolysis Index 8
--- NOTE | 2020-04-13 22:08 | Emergency Department Report ---
ED Neuro Deficit HPI - General Chief Complaint: Neuro Symptoms/Deficit Stated Complaint: LEFT SIDE NUMBNESS Time Seen by Provider: 04/13/20 22:00 Source: patient Mode of arrival: Wheelchair Limitations: No Limitations - History of Present Illness Initial Comments: This is a 75-year-old female with history of asthma GERD hypertension cervical spine surgery in January who presents with left arm left leg weakness and numbness 20 minutes prior to arrival. She was on the phone when this occurred. She became upset. She was became "paralyzed". She fell to the couch. She was unable to move her left arm left leg. She also had numbness in her left arm l eft leg. Since the surgery she has had upper left back numbness. She also has had numbness at the left forefoot lateral. New left-sided numbness and weakness have now resolved. No previous history of TIA or CVA She also had a tight sensation left chest briefly. -: Sudden Location: left arm, left leg Presenting Symptoms: Present: Weak/Paralyzed One Side History of same: No Place: home Severity: severe Improves With: rest On Anticoagulants: No Context: sudden onset Associated Symptoms: chest pain - Related Data Home Medications: Home Medications Medication Instructions Recorded Confirmed Last Taken amLODIPine 10 mg PO DAILY 05/14/14 11/26/15 11/25/15 Meloxicam 7.5 mg PO PRN PRN 11/18/15 11/26/15 11/24/15 Caplet 1 cap PO DAILY 11/18/15 11/26/15 11/24/15 Previous Rx's Medication Instructions Recorded Last Taken Type Benzonatate [Tessalon Perles] 100 mg PO Q8HR PRN #20 capsule 02/05/17 Unknown Rx traMADoL [Ultram 50 MG tab] 50 mg PO Q6HR PRN #10 tablet 09/30/19 Unknown Rx predniSONE [Deltasone] 20 mg PO QDAY #5 tab 04/06/20 Unknown Rx traMADoL [Ultram 50 MG tab] 50 mg PO Q6HR PRN #14 tablet 04/06/20 Unknown Rx Allergies/Adverse Reactions: Allergies Allergy/AdvReac Type Severity Reaction Status Date / Time ampicillin Allergy Swelling Verified 09/30/19 01:17 aspirin Allergy Hives Verified 09/30/19 01:17 cephalexin Allergy Swelling Verified 09/30/19 01:17 lisinopril Allergy Angioedema Verified 09/30/19 01:17 oxycodone Allergy Swelling Verified 09/30/19 01:17 Penicillins Allergy Swelling Unverified 09/30/19 01:17 Sulfa (Sulfonamide Allergy Hives Unverified 09/30/19 01:17 Antibiotics) ED Review of Systems ROS: Stated complaint: LEFT SIDE NUMBNESS Other details as noted in HPI Comment: All other systems reviewed and negative Constitutional: denies: fever, malaise Respiratory: denies: cough Cardiovascular: denies: chest pain Gastrointestinal: denies: abdominal pain, nausea, vomiting Neurological: numbness, other (Weakness) ED Past Medical Hx - Past Medical History Previous Medical History?: Yes Hx Hypertension: Yes Hx GERD: Yes Hx Arthritis: Yes Hx Seizures: No Hx Asthma: Yes (no problem in 1 year) Hx HIV: No - Surgical History Past Surgical History?: Yes Hx Breast Surgery: Yes (Right breast Lumpectomy) Additional Surgical History: hysterectomy - Social History Smoking Status: Never Smoker Substance Use Type: Alcohol - Medications Home Medications: Home Medications Medication Instructions Recorded Confirmed Last Taken Type amLODIPine 10 mg PO DAILY 05/14/14 11/26/15 11/25/15 History Meloxicam 7.5 mg PO PRN PRN 11/18/15 11/26/15 11/24/15 History Caplet 1 cap PO DAILY 11/18/15 11/26/15 11/24/15 History Benzonatate [Tessalon Perles] 100 mg PO Q8HR PRN #20 capsule 02/05/17 Unknown Rx traMADoL [Ultram 50 MG tab] 50 mg PO Q6HR PRN #10 tablet 09/30/19 Unknown Rx predniSONE [Deltasone] 20 mg PO QDAY #5 tab 04/06/20 Unknown Rx traMADoL [Ultram 50 MG tab] 50 mg PO Q6HR PRN #14 tablet 04/06/20 Unknown Rx ED Neuro Physical Exam - General Limitations: No Limitations General appearance: alert, in no apparent distress Suspected Stroke: Yes - Head Head exam: Present: atraumatic, normocephalic - Eye Eye exam: Present: normal appearance - ENT ENT exam: Present: mucous membranes moist - Neck Neck exam: Present: normal inspection - Respiratory Respiratory exam: Present: normal lung sounds bilaterally. Absent: respiratory distress, wheezes, rales, rhonchi - Cardiovascular Cardiovascular Exam: Present: regular rate, normal rhythm, normal heart sounds. Absent: systolic murmur, diastolic murmur, rubs, gallop - GI/Abdominal GI/Abdominal exam: Present: soft, normal bowel sounds. Absent: distended, tenderness, guarding, rebound - Extremities Exam Extremities exam: Present: normal inspection - Neurological Exam Neurological exam: Present: alert, oriented X3 - NIHSS Assessment Interval: Baseline 1a. Level of Consciousness: alert/keenly responsive 1b. LOC Questions: answers both correctly 1c. LOC Commands: performs tasks correctly 2. Best Gaze: normal 3. Visual: no visual loss 4. Facial Palsy: normal symmetrical movement 5b. Motor Arm Right: no drift 5a. Motor Arm Left: no drift 6a. Motor Leg Left: no drift 6b. Motor Leg Right: no drift 7. Limb Ataxia: absent 8. Sensory: normal 9. Best Language: no aphasia 10. Dysarthria: normal 11. Extinction/Inattention: no abnormality Total Score: 0 Stroke Severity: No Stroke Symptoms - Psychiatric Psychiatric exam: Present: normal affect, normal mood - Skin Skin exam: Present: warm, dry, intact, normal color. Absent: rash ED Course Vital Signs 04/13/20 04/13/20 20:30 22:44 Temperature 98.0 F 100 F H Pulse Rate 83 70 Respiratory 18 18 Rate Blood Pressure 180/92 Blood Pressure 155/81 [Left] O2 Sat by Pulse 98 100 Oximetry - Lab Data Result diagrams: 04/13/20 20:49 04/13/20 20:49 Lab Results 04/13/20 04/13/20 04/13/20 Range/Units 20:49 20:49 20:49 WBC 7.0 (4.5-11.0) K/mm3 RBC 5.10 H (3.65-5.03) M/mm3 Hgb 14.9 H (10.1-14.3) gm/dl Hct 44.9 H (30.3-42.9) % MCV 88 (79-97) fl MCH 29 (28-32) pg MCHC 33 (30-34) % RDW 14.7 (13.2-15.2) % Plt Count 216 (140-440) K/mm3 PT (12.2-14.9) Sec. INR (0.87-1.13) APTT (24.2-36.6) Sec. Thrombin Time (15.1-19.6) Sec. Sodium 144 (137-145) mmol/L Potassium 3.2 L (3.6-5.0) mmol/L Chloride 103.4 (98-107) mmol/L Carbon Dioxide 26 (22-30) mmol/L Anion Gap 18 mmol/L BUN 8 (7-17) mg/dL Creatinine 0.7 (0.7-1.2) mg/dL Estimated GFR > 60 ml/min BUN/Creatinine Ratio 11 % Glucose 105 H (65-100) mg/dL Calcium 9.2 (8.4-10.2) mg/dL Troponin T < 0.010 < 0.010 (0.00-0.029) ng/mL Plasma/Serum Alcohol (0-0.07) % 04/13/20 04/13/20 04/13/20 Range/Units 22:50 22:50 22:50 WBC (4.5-11.0) K/mm3 RBC (3.65-5.03) M/mm3 Hgb (10.1-14.3) gm/dl Hct (30.3-42.9) % MCV (79-97) fl MCH (28-32) pg MCHC (30-34) % RDW (13.2-15.2) % Plt Count (140-440) K/mm3 PT 12.6 (12.2-14.9) Sec. INR 0.96 (0.87-1.13) APTT 25.9 (24.2-36.6) Sec. Thrombin Time 15.6 (15.1-19.6) Sec. Sodium (137-145) mmol/L Potassium (3.6-5.0) mmol/L Chloride (98-107) mmol/L Carbon Dioxide (22-30) mmol/L Anion Gap mmol/L BUN (7-17) mg/dL Creatinine (0.7-1.2) mg/dL Estimated GFR ml/min BUN/Creatinine Ratio % Glucose (65-100) mg/dL Calcium (8.4-10.2) mg/dL Troponin T < 0.010 (0.00-0.029) ng/mL Plasma/Serum Alcohol < 0.01 (0-0.07) % - EKG Data EKG shows normal: sinus rhythm, axis, intervals, QRS complexes, ST-T waves Rate: normal Interpretation: normal EKG - Radiology Data Radiology results: report reviewed, image reviewed AP portable chest: No acute findings CT head: No acute intracranial hemorrhage - Medical Decision Making Diagnosis: TIA with acute left-sided numbness and paralysis which have completely resolved. Patient received aspirin in the emergency department. TPA is not indicated considering NIH stroke score 0 and rapidly resolved symptoms. Transient left chest pain nondescript will rule out for [place] with serial troponin. labs reviewed notable for mild hypokalemia Admitted to the hospital service for neurological evaluation Critical care attestation.: If time is entered above; I have spent that time in minutes in the direct care of this critically ill patient, excluding procedure time. ED Disposition Clinical Impression: TIA (transient ischemic attack), Chest pain Disposition: OP ADMIT IP TO THIS HOSP Is pt being admited?: Yes Does the pt Need Aspirin: No Condition: Stable
[2020-04-13 23:10] LABS: INR 0.96 (0.87-1.13)
[2020-04-13 23:11] LABS: Partial Thromboplastin Time 25.9 Sec. (24.2-36.6)
[2020-04-13 23:12] LABS: Thrombin Time 15.6 Sec. (15.1-19.6)
[2020-04-14] MEDS ORDERED: ACETAMINOPHEN 325 MG TAB PO PRN ×2 (04:22)
[2020-04-14] MEDS ORDERED: NITROGLYCERIN 0.4 MG TAB SUBL SL PRN (04:22)
[2020-04-14] MEDS ORDERED: PROMETHAZINE 25 MG RECT SUPP PR PRN (04:22)
[2020-04-14] MEDS ORDERED: ONDANSETRON 4 MG/2 ML INJ IV PRN ×2 (04:22)
[2020-04-14] MEDS ORDERED: MORPHINE 2 MG/1 ML INJ IV PRN (04:22)
[2020-04-14] MEDS ORDERED: MAGNESIUM HYDROXIDE (MOM) ORAL LIQD UDC PO PRN ×2 (04:22)
[2020-04-14] MEDS ORDERED: METOCLOPRAMIDE 10 MG TAB PO PRN (04:22)
--- NOTE | 2020-04-14 04:36 | History and Physical Report ---
History of Present Illness Date of examination: 04/14/20 Date of admission: 04/14/2020 Chief complaint: Left sided Numbness Chest pain History of present illness: 75-year-old -[place] female with known history of GERD, asthma ,hypertension history of cervical spine surgery in January 2020 presenting to the emergency room today with left lower extremity numbness and weakness for about 20 minutes prior to arrival in the emergency room. Patient states that she was on the phone and was getting upset during the call when symptoms suddenly started and she fell on the couch. She was unable to move her left upper and left lower extremity and also had some numbness. However indicates that since her surgery in January she has had some numbness on the left upper back and also over the left foot. The numbness and weakness had resolved upon arrival in the emergency room. She has some chest tightness which was left-sided during this episode. This has also resolved. Work-up in the emergency room so far has been unremarkable except for an elevated blood pressure on arrival which has now come within normal limits. Blood pressure during this exam was 131/69 mmHg. Past History Past Medical History: GERD, hypertension, other (Asthma) Past Surgical History: hysterectomy, Other (Right breast lumpectomy) Social history: no significant social history Family history: hypertension (Mother and sister had hypertension) Medications and Allergies Allergies Allergy/AdvReac Type Severity Reaction Status Date / Time ampicillin Allergy Swelling Verified 09/30/19 01:17 aspirin Allergy Hives Verified 09/30/19 01:17 cephalexin Allergy Swelling Verified 09/30/19 01:17 lisinopril Allergy Angioedema Verified 09/30/19 01:17 oxycodone Allergy Swelling Verified 09/30/19 01:17 Penicillins Allergy Swelling Unverified 09/30/19 01:17 Sulfa (Sulfonamide Allergy Hives Unverified 09/30/19 01:17 Antibiotics) Home Medications Medication Instructions Recorded Confirmed Last Taken Type amLODIPine 10 mg PO DAILY 05/14/14 11/26/15 11/25/15 History Meloxicam 7.5 mg PO PRN PRN 11/18/15 11/26/15 11/24/15 History Caplet 1 cap PO DAILY 11/18/15 11/26/15 11/24/15 History Benzonatate [Tessalon Perles] 100 mg PO Q8HR PRN #20 capsule 02/05/17 Unknown Rx traMADoL [Ultram 50 MG tab] 50 mg PO Q6HR PRN #10 tablet 09/30/19 Unknown Rx predniSONE [Deltasone] 20 mg PO QDAY #5 tab 04/06/20 Unknown Rx traMADoL [Ultram 50 MG tab] 50 mg PO Q6HR PRN #14 tablet 04/06/20 Unknown Rx Review of Systems Constitutional: no fever, no chills Cardiovascular: chest pain, shortness of breath, no palpitations, no syncope Respiratory: no cough, no shortness of breath Gastrointestinal: no abdominal pain, no nausea, no vomiting, no diarrhea, no hematochezia Genitourinary Female: no flank pain, no dysuria, no hematuria Musculoskeletal: no neck pain, no low back pain Integumentary: no rash, no pruritis Neurological: no headaches, no change in speech, no confusion Psychiatric: no anxiety, no depression Exam - Constitutional Vitals: Temp Pulse Resp BP Pulse Ox 100 F H 70 20 155/81 100 04/13/20 22:44 04/13/20 22:44 04/13/20 22:44 04/13/20 22:44 04/13/20 22:44 General appearance: Present: no acute distress, well-nourished - EENT Eyes: Present: PERRL, EOM intact ENT: hearing intact, clear oral mucosa, dentition normal - Neck Neck: Present: supple, normal ROM - Respiratory Respiratory effort: normal Respiratory: bilateral: CTA - Cardiovascular Rhythm: regular Heart Sounds: Present: S1 & S2 - Extremities Extremities: no ischemia, pulses intact, pulses symmetrical, No edema, Full ROM Peripheral Pulses: within normal limits - Abdominal General gastrointestinal: Present: soft, non-tender, non-distended, normal bowel sounds - Integumentary Integumentary: Present: clear, warm, dry - Musculoskeletal Musculoskeletal: strength equal bilaterally - Psychiatric Psychiatric: appropriate mood/affect, intact judgment & insight, memory intact, cooperative - Neurologic Neurologic: CNII-XII intact, moves all extremities HEART Score - HEART Score Troponin: Troponin T < 0.010 ng/mL (0.00-0.029) 04/13/20 22:50 Results - Labs CBC & Chem 7: 04/13/20 20:49 04/13/20 20:49 Labs: Abnormal lab results 04/13/20 04/13/20 Range/Units 20:49 20:49 RBC 5.10 H (3.65-5.03) M/mm3 Hgb 14.9 H (10.1-14.3) gm/dl Hct 44.9 H (30.3-42.9) % Potassium 3.2 L (3.6-5.0) mmol/L Glucose 105 H (65-100) mg/dL Assessment and Plan - Patient Problems (1) TIA (transient ischemic attack) Current Visit: Yes Status: Acute Plan to address problem: Patient admitted and placed on telemetry. Will monitor neurological status. She will be scheduled for carotid Doppler and MRI of the brain. We will also request evaluation by neurology. (2) Chest pain Current Visit: Yes Status: Acute Plan to address problem: We will check serial cardiac enzymes and also monitor EKG. We will continue on daily Plavix and IV morphine as needed for chest pain. Meanwhile she is placed on daily Plavix as she is allergic to aspirin. We will request evaluation by cardiology prior to discharge. (3) DVT prophylaxis Current Visit: Yes Status: Acute (4) Full code status Current Visit: Yes Status: Acute
[2020-04-14] MEDS: HEPARIN 5,000 UNIT/1 ML VIAL SUB-Q SCH ×3 (05:38→21:44)
[2020-04-14 05:55] LABS: BUN/Creatinine Ratio 11; Blood Urea Nitrogen 8 mg/dL (7-17); Calcium 8.7 mg/dL (8.4-10.2); Hemolysis Index 8
[2020-04-14 05:56] LABS: Basophils # (Auto) 0.1 K/mm3 (0.0-0.1); Basophils % (Auto) 1.8 % (0.0-1.8); Eosinophils # (Auto) 0.3 K/mm3 (0.0-0.4); Eosinophils % (Auto) 5.8 % (0.0-4.3); Hematocrit 41.7 % (30.3-42.9); Hemoglobin 13.8 gm/dl (10.1-14.3); Lymphocytes % (Auto) 36.3 % (13.4-35.0); Mean Corpuscular HGB Conc 33 % (30-34); Mean Corpuscular Volume 89 fl (79-97); Monocytes # (Auto) 0.4 K/mm3 (0.0-0.8); Monocytes % (Auto) 7.5 % (0.0-7.3); Platelet Count 201 K/mm3 (140-440); Red Cell Distribution Width 14.5 % (13.2-15.2)
[2020-04-14] MEDS ORDERED: REGADENOSON 0.4 MG/5 ML INJ IV ONE ×2 (08:24→09:00)
--- NOTE | 2020-04-14 10:03 | Consultation ---
History of Present Illness Consult date: 04/14/20 Requesting physician: IWONA PADGETT Consult reason: chest pain History of present illness: The pt is a 75-year-old -British female with a past medical history of HTN, GERD, asthma, ongoing tobacco use, recent cervical spine surgery in January 2020. She is previously unknown to our practice. She presented with c/o left- sided numbness and weakness for approx 20 minutes prior to arrival to the ED. Patient states that she was on the phone and was getting upset during the call when symptoms suddenly started and she fell on the couch. She was unable to move her left upper and left lower extremity and also had some numbness. However indicates that since her surgery in January she has had some numbness on the left upper back and also over the left foot. The numbness and weakness had resolved upon arrival in the emergency room. Pt denies any occurrence of chest pain, palpitations, n/v, diaphoresis, dizziness or syncope. Pt states that she was clutching her left arm to her chest in the ED because of the left-sided numbness and weakness and "everyone kept asking me if I was having chest pain". Pt reports that she denied chest pain to ED staff. Pt was scheduled for lexiscan MPI stress test today per primary team. Pt denies any known prior cardiac issues, including CAD, AMI, HF or arrhythmia. Past History Past Medical History: GERD, hypertension, other (as per HPI) Past Surgical History: hysterectomy, Other (Right breast lumpectomy) Social history: smoking Family history: hypertension (Mother and sister had hypertension) Medications and Allergies Allergies Allergy/AdvReac Type Severity Reaction Status Date / Time ampicillin Allergy Swelling Verified 09/30/19 01:17 aspirin Allergy Hives Verified 09/30/19 01:17 cephalexin Allergy Swelling Verified 09/30/19 01:17 lisinopril Allergy Angioedema Verified 09/30/19 01:17 oxycodone Allergy Swelling Verified 09/30/19 01:17 Penicillins Allergy Swelling Unverified 09/30/19 01:17 Sulfa (Sulfonamide Allergy Hives Unverified 09/30/19 01:17 Antibiotics) Home Medications Medication Instructions Recorded Confirmed Last Taken Type amLODIPine 15 mg PO DAILY 05/14/14 04/14/20 11/25/15 History Meloxicam 15 mg PO PRN PRN 11/18/15 04/14/20 11/24/15 History Benzonatate [Tessalon Perles] 100 mg PO Q8HR PRN #20 capsule 02/05/17 04/14/20 Unknown Rx traMADoL [Ultram 50 MG tab] 50 mg PO Q6HR PRN #10 tablet 09/30/19 04/14/20 Unkno wn Rx traMADoL [Ultram 50 MG tab] 50 mg PO Q6HR PRN #14 tablet 04/06/20 04/14/20 Unknown Rx Cyproheptadine [Periactin] 4 mg PO HS 04/14/20 04/14/20 Unknown History Gabapentin [Neurontin] 300 mg PO Q8HR 04/14/20 04/14/20 Unknown History Active Meds: Active Medications Acetaminophen (Tylenol) 650 mg PO Q4H PRN PRN Reason: Pain MILD(1-3)/Fever >100.5/ROBERTS Last Admin: 04/14/20 05:38 Dose: 650 mg Documented by: Bisacodyl (Dulcolax) 10 mg [place] QDAY PRN PRN Reason: Constipation Clopidogrel Bisulfate (Plavix) 75 mg PO QDAY [facility] Heparin Sodium (Porcine) (Heparin) 5,000 unit SUB-Q Q8HR [facility] Last Admin: 04/14/20 05:38 Dose: 5,000 unit Documented by: Magnesium Hydroxide (Milk Of Magnesia) 30 ml PO Q4H PRN PRN Reason: Constipation Metoclopramide HCl (Reglan) 10 mg PO Q6H PRN PRN Reason: Nausea And Vomiting Morphine Sulfate (Morphine) 2 mg IV Q5MIN PRN PRN Reason: Chest Pain unrelieved by NTG Nitroglycerin (Nitrostat) 0.4 mg SL Q5M PRN PRN Reason: Chest Pain Ondansetron HCl (Zofran) 4 mg IV Q8H PRN PRN Reason: Nausea And Vomiting Promethazine HCl (Phenergan) 25 mg [place] Q6H PRN PRN Reason: Nausea And Vomiting Sodium Chloride (Sodium Chloride Flush Syringe 10 Ml) 10 ml IV BID AMY Sodium Chloride (Sodium Chloride Flush Syringe 10 Ml) 10 ml IV PRN PRN PRN Reason: LINE FLUSH Review of Systems Constitutional: weakness (left-sided), no weight loss, no weight gain, no fever, no chills, no sweats Ears, nose, mouth and throat: no ear pain, no nose pain, no sinus pressure, no sinus pain Cardiovascular: high blood pressure, no chest pain, no orthopnea, no palpitations, no rapid/irregular heart beat, no edema, no syncope, no lightheadedness, no shortness of breath, no dyspnea on exertion, no leg edema Respiratory: no cough, no shortness of breath, no dyspnea on exertion, no congestion, no wheezing, no pain on inspiration Gastrointestinal: no abdominal pain, no nausea, no vomiting, no diarrhea, no constipation, no change in bowel habits Genitourinary Female: no pelvic pain, no flank pain, no dysuria, no urinary frequency, no urgency Musculoskeletal: arm numbness/tingling (left sided), leg numbness/tingling (left sided), muscle weakness (left sided) Integumentary: no rash, no pruritis, no redness, no sores Neurological: no head injury, no paralysis, no weakness, no parathesias, no numbness, no tingling, no seizures, no syncope Psychiatric: no anxiety Endocrine: no cold intolerance, no heat intolerance Hematologic/Lymphatic: no easy bruising, no easy bleeding Allergic/Immunologic: no urticaria Physical Examination Vital Signs Temp Pulse Resp BP Pulse Ox 98.0 F 83 18 180/92 98 04/13/20 20:30 04/13/20 20:30 04/13/20 20:30 04/13/20 20:30 04/13/20 20:30 General appearance: no acute distress HEENT: Positive: PERRL, Normocephaly, Mucus Membranes Moist Neck: Positive: neck supple, trachea midline Cardiac: Positive: Reg Rate and Rhythm, S1/S2 Lungs: Positive: clear to auscultation Neuro: Positive: Grossly Intact Abdomen: Negative: Tender Skin: Negative: Rash Musculoskeletal: No Pain Extremities: Absent: edema Results 04/14/20 05:13 04/14/20 05:13 Coagulation 04/13/20 Range/Units 22:50 PT 12.6 (12.2-14.9) Sec. INR 0.96 (0.87-1.13) APTT 25.9 (24.2-36.6) Sec. CBC 04/13/20 04/14/20 Range/Units 20:49 05:13 WBC 7.0 5.5 (4.5-11.0) K/mm3 RBC 5.10 H 4.70 (3.65-5.03) M/mm3 Hgb 14.9 H 13.8 (10.1-14.3) gm/dl Hct 44.9 H 41.7 (30.3-42.9) % Plt Count 216 201 (140-440) K/mm3 Lymph # 2.0 (1.2-5.4) K/mm3 [place] # 0.4 (0.0-0.8) K/mm3 Eos # 0.3 (0.0-0.4) K/mm3 Baso # 0.1 (0.0-0.1) K/mm3 Comprehensive Metabolic Panel 04/13/20 04/14/20 Range/Units 20:49 05:13 Sodium 144 141 (137-145) mmol/L Potassium 3.2 L 3.6 (3.6-5.0) mmol/L Chloride 103.4 105.7 (98-107) mmol/L Carbon Dioxide 26 26 (22-30) mmol/L BUN 8 8 (7-17) mg/dL Creatinine 0.7 0.7 (0.7-1.2) mg/dL Glucose 105 H 110 H (65-100) mg/dL Calcium 9.2 8.7 (8.4-10.2) mg/dL - Imaging and Cardiology Echo: pending EKG: report reviewed, image reviewed EKG interpretations - Telemetry EKG Rhythm: Sinus Rhythm - EKG Sinus rhythms and dysrhythmias: sinus rhythm Assessment and Plan AMI r/o. Pt denies any occurrence of chest pain. S/p lexiscan MPI stress test today which was negative. tte reviewed with no significant abnormalities, normal bubble study. Head CT pending and neurology consultation pending. Currently stable cardiac status. Nothing further to add from cardiac perspective at this time. Will sign off. Recommend pt follow up in our office with Dr. Alejandra French within 2 weeks of dischar [employer] ([phone]). The patient has been seen in conjunction with Dr. Alejandra French who agrees with the assessment and plan of care. - Patient Problems (1) Left-sided weakness Current Visit: Yes Status: Acute (2) TIA (transient ischemic attack) Current Visit: Yes Status: Suspected (3) H/O cervical spine surgery Current Visit: Yes Status: Chronic (4) HTN (hypertension) Current Visit: Yes Status: Chronic (5) History of asthma Current Visit: Yes Status: Chronic (6) Tobacco use Current Visit: Yes Status: Chronic (7) GERD (gastroesophageal reflux disease) Current Visit: Yes Status: Chronic
[2020-04-14] MEDS ORDERED: LORazepam 2 MG/ML VIAL IV ONE (11:00)
--- NOTE | 2020-04-14 12:51 | Treadmill Report ---
NUCLEAR PERFUSION SCAN REFERRING PHYSICIAN: Hospitalist service. PROTOCOL: The patient was brought to the stress lab in postoperative state, given 10 mCi of technetium 99m at rest. The patient underwent rest imaging. The patient underwent Lexiscan stress test per standard protocol. At peak stress, the patient was given 26 mCi of technetium 99m. Shortly thereafter, the patient underwent stress imaging. Raw imaging reveals mild GI artifact. No significant motion artifact. SPECT imaging examined carefully in horizontal long axis, vertical long axis, short axis views. There is normal mitral uptake of radioisotope in all reported segments. No evidence of significant fixed or reversible perfusion defects suggestive of prior infarction or ischemia. Gated wall motion reveals normal systolic thickening, calculated ejection fraction of 68%, no TID. CONCLUSIONS: 1. Normal myocardial perfusion scan without evidence of active ischemia or prior infarction. 2. Normal left ventricular systolic performance without evidence of transient ischemic dilatation or stress-induced segmental wall motion abnormalities. JOB# [id number] CHANDRIKA/MING
--- NOTE | 2020-04-14 12:54 | Consultation ---
History of Present Illness Consult date: 04/14/20 Reason for Consult: Left sided weakness Chief complaint: Left sided weakness History of present illness: Patient is a 75 y/o woman w/ a h/o HTN, asthma, GERD. She presented yesterday with symptoms described as sudden onset of left sided weakness and numbness. This occurred soon after she was talking to someone on the phone. She was then brought to [facility] for further evaluation. Patient's symptoms resolved by the time she had arrived at the hospital. Symptoms lasted about an hour prior to resolving. Past History Past Medical History: GERD, hypertension, other (as per HPI) Past Surgical History: hysterectomy, Other (Right breast lumpectomy) Social history: smoking Family history: hypertension (Mother and sister had hypertension) Medications and Allergies Allergies Allergy/AdvReac Type Severity Reaction Status Date / Time ampicillin Allergy Swelling Verified 09/30/19 01:17 aspirin Allergy Hives Verified 09/30/19 01:17 cephalexin Allergy Swelling Verified 09/30/19 01:17 lisinopril Allergy Angioedema Verified 09/30/19 01:17 oxycodone Allergy Swelling Verified 09/30/19 01:17 Penicillins Allergy Swelling Unverified 09/30/19 01:17 Sulfa (Sulfonamide Allergy Hives Unverified 09/30/19 01:17 Antibiotics) Home Medications Medication Instructions Recorded Confirmed Last Taken Type amLODIPine 15 mg PO DAILY 05/14/14 04/14/20 11/25/15 History Meloxicam 15 mg PO PRN PRN 11/18/15 04/14/20 11/24/15 History Benzonatate [Tessalon Perles] 100 mg PO Q8HR PRN #20 capsule 02/05/17 04/14/20 Unknown Rx traMADoL [Ultram 50 MG tab] 50 mg PO Q6HR PRN #10 tablet 09/30/19 04/14/20 Unknown Rx traMADoL [Ultram 50 MG tab] 50 mg PO Q6HR PRN #14 tablet 04/06/20 04/14/20 Unknown Rx Cyproheptadine [Periactin] 4 mg PO HS 04/14/20 04/14/20 Unknown History Gabapentin [Neurontin] 300 mg PO Q8HR 04/14/20 04/14/20 Unknown History Active Meds: Active Medications Acetaminophen (Tylenol) 650 mg PO Q4H PRN PRN Reason: Pain MILD(1-3)/Fever >100.5/ROBERTS Last Admin: 04/14/20 05:38 Dose: 650 mg Documented by: Bisacodyl (Dulcolax) 10 mg [place] QDAY PRN PRN Reason: Constipation Clopidogrel Bisulfate (Plavix) 75 mg PO QDAY AMY Heparin Sodium (Porcine) (Heparin) 5,000 unit SUB-Q Q8HR [facility] Last Admin: 04/14/20 05:38 Dose: 5,000 unit Documented by: Magnesium Hydroxide (Milk Of Magnesia) 30 ml PO Q4H PRN PRN Reason: Constipation Metoclopramide HCl (Reglan) 10 mg PO Q6H PRN PRN Reason: Nausea And Vomiting Morphine Sulfate (Morphine) 2 mg IV Q5MIN PRN PRN Reason: Chest Pain unrelieved by NTG Nitroglycerin (Nitrostat) 0.4 mg SL Q5M PRN PRN Reason: Chest Pain Ondansetron HCl (Zofran) 4 mg IV Q8H PRN PRN Reason: Nausea And Vomiting Promethazine HCl (Phenergan) 25 mg [place] Q6H PRN PRN Reason: Nausea And Vomiting Sodium Chloride (Sodium Chloride Flush Syringe 10 Ml) 10 ml IV BID AMY Sodium Chloride (Sodium Chloride Flush Syringe 10 Ml) 10 ml IV PRN PRN PRN Reason: LINE FLUSH Review of Systems All systems: negative Neurological: weakness, numbness Physical Examination - Vital Signs Vital Signs: Vital Signs Temp Pulse Resp BP Pulse Ox 98.0 F 83 18 180/92 98 04/13/20 20:30 04/13/20 20:30 04/13/20 20:30 04/13/20 20:30 04/13/20 20:30 - Physical Exam Narrative exam: Patient is lethargic as she was recently given ativan prior to MRI, arousable to verbal stimulus, oriented x4, follows complex commands. No dysarthria or aphasia noted. PERRL, EOMI, VFF, tongue midline, bilaterally intact to LT, no facial weakness noted. 5/5 strength in all extremities. Bilaterally intact light touch. Bilaterally intact to FTN and HTS - Constitutional General appearance: comfortable - Level of Consciousness 1a. Level of Consciousness: arousable/minor stimuli (Recently given ativan prior to MRI) - LOC Questions 1b. LOC Questions: answers both correctly - LOC Command 1c. LOC Commands: performs tasks correctly - Best Gaze 2. Best Gaze: normal - Visual 3. Visual: no visual loss - Facial Palsy 4. Facial Palsy: normal symmetrical movement - Motor Arm 5a. Motor Arm Left: no drift 5b. Motor Arm Right: no drift - Motor Leg 6a. Motor Leg Left: no drift 6b. Motor Leg Right: no drift - Limb Ataxia 7. Limb Ataxia: absent - Sensory 8. Sensory: normal - Best Language 9. Best Language: no aphasia - Dysarthria 10. Dysarthria: normal - Extinction and Inattention 11. Extinction/Inattention: no abnormality - Scoring Total Score: 1 Stroke Severity: Minor Stroke Results - Laboratory Findings CBC and BMP: 04/14/20 05:13 04/14/20 05:13 Abnormal Lab Findings: Abnormal Labs 04/13/20 04/13/20 04/14/20 20:49 20:49 05:13 RBC 5.10 H Hgb 14.9 H Hct 44.9 H Lymph % (Auto) 36.3 H [place] % (Auto) 7.5 H Eos % (Auto) 5.8 H Potassium 3.2 L Glucose 105 H 04/14/20 05:13 RBC Hgb Hct Lymph % (Auto) [place] % (Auto) Eos % (Auto) Potassium Glucose 110 H Assessment and Plan Patient is a 75 y/o woman w/ a h/o HTN, asthma, GERD, who p/w left sided weakness and numbness that resolved within one hour. According to the patient's clinical findings, it is likely that she has had a TIA. Plan: 1. TIA: - MRI brain: No acute abnormality. - Check CTA head. - CUS pending - CT head: No acute abnormality. - Echo: EF 55-60%, LA normal size, bubble study negative. - Cont. ASA - Cont. statin. LDL goal <70 - Telemetry monitoring while in house - PT/OT/ST - DVT Ppx: Recommend lovenox 2. Hypertension: - Recommend BP goal of normotension, as no evidence of stroke on MRI. - Will continue to monitor patient. Thank you for allowing me to take part in the care of this patient. Karan Weston MD Neurology This clinical encounter was provided via live telemedicine platform. Consultative service was provided for neurology to support local providers. The Acute Teleneurology team should be contacted with any neurologic worsening or clinical changes, new test results, or new patient history that is reported to or discovered by the local team following completion of the teleneurology consultation, specifically that which has the potential to impact the consultative recommendations. Patient/Family was informed the Neurology Consult would happen via TeleHealth consult by way of interactive audio and video telecommunications and consented to receiving care in this manner. Due to the potential for life-threatening deterioration due to underlying neurologic illness, and limited resources available for patient care, telemedicine was used as means of patient care. Telemedicine consultation is limited in the extent of physical exam that can be virtually provided. Time spent evaluating patient includes time for face to face visit via telemedicine, review of medical records, imaging studies and discussion of findings with providers, the patient and/or family.
--- NOTE | 2020-04-14 13:30 | Magnetic Resonance Report ---
MR brain wo con INDICATION / CLINICAL INFORMATION: 75 years Female; stroke. TECHNIQUE: Multiplanar, multisequence MR images of the brain were obtained. COMPARISON: 04/13/2020 - CT FINDINGS: BRAIN / INTRACRANIAL CONTENTS: Surprisingly little atrophy present. There are minimal areas of increased signal intensity on FLAIR imaging in the white matter of the cer ebral hemispheres. These are nonspecific findings and may be related to microangiopathy (hypertension , diabetes, atherosclerosis), given the patient's age. Otherwise, no acute ischemia, acute hemorrhage, or hydrocephalus. CRANIOCERVICAL JUNCTION: No significant abnormality. VASCULAR FLOW-VOIDS: No significant abnormality. ORBITS: No significant abnormality of visualized orbits. SINUSES / MASTOIDS: No significant abnormality in the visualized paranasal sinuses or mastoid air chucky ls. ADDITIONAL FINDINGS: None. IMPRESSION: 1. No focal mass, hemorrhage, hydrocephalus, or acute ischemia. Signer Name: Adolfo Bran MD, III Signed: 04/14/2020 1:26 PM Workstation Name: [id number]
--- NOTE | 2020-04-14 13:36 | Vascular Lab Report ---
"DUPLEX DOPPLER ULTRASOUND CAROTID, BILATERAL INDICATION: stroke. FINDINGS: RIGHT CAROTID: No significant atherosclerotic plaque. Right ICA peak systolic velocity: 75 cm/sec. Right Vertebral Artery: Antegrade flow. LEFT CAROTID: No significant atherosclerotic plaque. Left ICA peak systolic velocity: 96 cm/sec. Left Vertebral Artery: Antegrade flow. IMPRESSION: 1. Right Internal Carotid Artery: Less than 50% diameter stenosis. 2. Left Internal Carotid Artery: Less than 50% diameter stenosis. Velocity criteria are extrapolated from diameter data as defined by the Society of Radiologists in [facility] Consensus Conference, Radiology 2003; 229;340-346. Degree of Stenosis (%) || ICA PSV (cm/sec) || Plaque estimate (%) || ICA/CCA PSV Ratio Normal <125 None <2.0 <50 <125 <50 <2.0 50-69 125-230 50 2.0-4.0 70 but less than 100 >230 50 >4.0 Near occlusion High, low, or none visible variable Total occlusion None visible; no lumen N/A Signer Name: Jose C Bustamante MD Signed: 04/14/2020 1:31 PM Workstation Name: [id number]
[2020-04-14] MEDS: CLOPIDOGREL 75 MG TAB PO SCH (14:51)
--- NOTE | 2020-04-14 15:24 | Progress Note ---
Assessment and Plan Assessment and plan: -- TIA (transient ischemic attack) Current Visit: Yes Status: Acute Neurochecks Neurochecks , extensive neuro work-up is done Physical therapy , Occupational Therapy , rehabilitation Patient allergic to aspirin , on Plavix and statin Neurology following, follow recommendations Follow neuro work-up Patient was not a candidate for TPA Tests done so far: CT head without contrast; no acute abnormalities noted; Carotid Doppler; no hemodynamically significant stenosis Echocardiogram; EF 55 to 60%, bubble study negative MRI brain; no focal mass hemorrhage hydrocephalus or acute ischemia Stress test; no evidence of ischemia, normal LV function --Atypical chest pain/probably secondary to GERD Current Visit: Yes Status: Acute Cardiology evaluated the patient , underwent stress test Negative for ischemia , normal LV function Chest pain probably secondary to GERD --GERD ; probably the cause of chest pain Current Visit: Yes Status: Acute. Protonix, supportive care --DVT prophylaxis Current Visit: Yes Status: Acute Lovenox --Full code status Current Visit: Yes Status: Acute Disposition; follow PT OT evaluation and recommendations Follow neurology evaluation and recommendations , follow lipid panel DC home with home health versus rehab as needed when stable Plan of care reviewed with the patient and her nurse History Interval history: Patient seen and examined at the bedside this morning Patient's chart and medications reviewed Admitted with atypical chest pain and neuro symptoms possible TIA Patient had extensive neuro work-up, reports pending Also was evaluated by cardiology, had echo and stress test Which was negative for ischemia normal ejection fraction Patient feels slightly better still complaining of left upper arm weakness Awaiting PT OT rehab Vital signs reviewed Hospitalist Physical - Constitutional Vitals: Temp Pulse Resp BP Pulse Ox 98.2 F 60 18 160/78 98 04/14/20 07:57 04/14/20 08:00 04/14/20 07:57 04/14/20 09:30 04/14/20 07:57 General appearance: Present: no acute distress, well-nourished, obese - EENT Eyes: Present: PERRL, EOM intact, scleral icterus, conjunctival injection - Neck Neck: Present: supple. Absent: rigidity - Respiratory Respiratory: bilateral: diminished, negative: rales, rhonchi, wheezing - Cardiovascular Rhythm: regular Heart Sounds: Present: S1 & S2 - Extremities Extremities: no ischemia, No edema - Abdominal General gastrointestinal: soft, non-tender, non-distended, normal bowel sounds - Integumentary Integumentary: Present: clear, warm - Psychiatric Psychiatric: appropriate mood/affect, cooperative - Neurologic Neurologic: moves all extremities (Residual weakness left side) HEART Score - HEART Score Troponin: Troponin T < 0.010 ng/mL (0.00-0.029) 04/14/20 13:11 Results - Labs CBC & Chem 7: 04/14/20 05:13 04/14/20 05:13 Labs: Laboratory Last Values WBC 5.5 K/mm3 (4.5-11.0) 04/14/20 05:13 RBC 4.70 M/mm3 (3.65-5.03) 04/14/20 05:13 Hgb 13.8 gm/dl (10.1-14.3) 04/14/20 05:13 Hct 41.7 % (30.3-42.9) 04/14/20 05:13 MCV 89 fl (79-97) 04/14/20 05:13 MCH 29 pg (28-32) 04/14/20 05:13 MCHC 33 % (30-34) 04/14/20 05:13 RDW 14.5 % (13.2-15.2) 04/14/20 05:13 Plt Count 201 K/mm3 (140-440) 04/14/20 05:13 Lymph % (Auto) 36.3 % (13.4-35.0) H 04/14/20 05:13 Hubbard % (Auto) 7.5 % (0.0-7.3) H 04/14/20 05:13 Eos % (Auto) 5.8 % (0.0-4.3) H 04/14/20 05:13 Baso % (Auto) 1.8 % (0.0-1.8) 04/14/20 05:13 Lymph # 2.0 K/mm3 (1.2-5.4) 04/14/20 05:13 Hubbard # 0.4 K/mm3 (0.0-0.8) 04/14/20 05:13 Eos # 0.3 K/mm3 (0.0-0.4) 04/14/20 05:13 Baso # 0.1 K/mm3 (0.0-0.1) 04/14/20 05:13 Seg Neutrophils % 48.6 % (40.0-70.0) 04/14/20 05:13 Seg Neutrophils # 2.7 K/mm3 (1.8-7.7) 04/14/20 05:13 PT 12.6 Sec. (12.2-14.9) 04/13/20 22:50 INR 0.96 (0.87-1.13) 04/13/20 22:50 APTT 25.9 Sec. (24.2-36.6) 04/13/20 22:50 Thrombin Time 15.6 Sec. (15.1-19.6) 04/13/20 22:50 Sodium 141 mmol/L (137-145) 04/14/20 05:13 Potassium 3.6 mmol/L (3.6-5.0) 04/14/20 05:13 Chloride 105.7 mmol/L (98-107) 04/14/20 05:13 Carbon Dioxide 26 mmol/L (22-30) 04/14/20 05:13 Anion Gap 13 mmol/L 04/14/20 05:13 BUN 8 mg/dL (7-17) 04/14/20 05:13 Creatinine 0.7 mg/dL (0.7-1.2) 04/14/20 05:13 Estimated GFR > 60 ml/min 04/14/20 05:13 BUN/Creatinine Ratio 11 % 04/14/20 05:13 Glucose 110 mg/dL (65-100) H 04/14/20 05:13 Calcium 8.7 mg/dL (8.4-10.2) 04/14/20 05:13 Troponin T < 0.010 ng/mL (0.00-0.029) 04/14/20 13:11 Nasal Screen MRSA (PCR) Negative (Negative) 04/14/20 Unknown Plasma/Serum Alcohol < 0.01 % (0-0.07) 04/13/20 22:50 - Diagnostic Impressions Diagnostic Impressions: Echocardiogram 04/14/20 04:25 Transthoracic Echocardiogram Indication: Chest pain, Stroke BP: 149/80 HR: 58 Conclusions *Global left ventricular wall motion and contractility are within normal limits. *The estimated ejection fraction is 55-60%. *Abnormal left ventricular diastolic filling is observed, consistent with impaired relaxation. *The pericardium appears normal. *Normal bubble study. Findings Left Ventricle: The left ventricular chamber size is normal. Global left ventricular wall motion and contractility are within normal limits. Global left ventricular systolic function is normal. The estimated ejection fraction is 55-60%. Abnormal left ventricular diastolic filling is observed, consistent with impaired relaxation. Left Atrium: The left atrial chamber size is normal. Right Ventricle: The right ventricular cavity size is normal. Right Atrium: The right atrial cavity size is normal. Aortic Valve: The aortic valve leaflets are mildly thickened. There is no evidence of aortic regurgitation. Mitral Valve: The mitral valve leaflets are mildly thickened. There is no evidence of mitral regurgitation. Tricuspid Valve: The tricuspid valve leaflets are normal. There is mild tricuspid regurgitation. The right ventricular systolic pressure is calculated at 29 mmHg. Pulmonic Valve: The pulmonic valve is not well visualized. Pericardium: The pericardium appears normal. Aorta: The aorta appears normal. Venous: The inferior vena cava appears normal in size. Contrast: Intravenous agitated saline contrast was used to assess intracardiac shunting. Measurements Chambers 2D Name Value Normal Range IVSd (2D) 1.02 cm (0.6 - 1.1) LVPWd (2D) 0.88 cm (0.6 - 1.1) LVIDd (2D) 3.74 cm (3.7 - 5.6) LVIDs (2D) 2.64 cm (2 - 3.8) LV FS (2D) 29.38 % - EF Teichholz (2D) 57.1 % - Ao root diameter (2D) 2.32 cm (2 - 3.7) Volumes/Mass Name Value Normal Range LA ESV SP 4CH (A/L) 17.29 ml - LA ESV SP 2CH (A/L) 36.95 ml - LA ESV BP (A/L) 26.51 ml - LA ESV BP (A/L) index 16.67 ml/m2 - LA ESV SP 4CH (MOD) 15.36 ml - LA ESV SP 2CH (MOD) 36.99 ml - LA ESV BP (MOD) 24.71 ml - LA ESV BP (MOD) index 15.54 ml/m2 - Diastolic/Systolic Function Name Value Normal Range MV E-wave Vmax 0.74 m/sec - MV deceleration time 261.36 msec - MV A-wave Vmax 0.91 m/sec - MV E:A ratio 0.82 ratio - Aortic Valve Name Value Normal Range AV Vmax 1.8 m/sec - AV VTI 35.78 cm - AV peak gradient 13 mmHg - AV mean gradient 5.96 mmHg - LVOT diameter 2.06 cm - LVOT Vmax 1.5 m/sec - LVOT VTI 31.72 cm - LVOT peak gradient 8.96 mmHg - LVOT mean gradient 3.96 mmHg - SV LVOT 105.37 ml - IZABELLA (continuity Vmax) 2.76 cm2 - IZABELLA (continuity VTI) 2.94 cm2 - Mitral Valve Name Value Normal Range MR Vmax 4.51 m/sec - Tricuspid Valve Name Value Normal Range TR Vmax 2.56 m/sec - TR peak gradient 26 mmHg - RAP 3 mmHg - RVSP 29 mmHg - Tomas/IV: Voiding Method Toilet IV Catheter Type [Right INT / Saline Lock Antecubital] Active Medications - Current Medications Current Medications: Generic Name Dose Route Start Last Admin Trade Name Freq PRN Reason Stop Dose Admin Acetaminophen 650 mg 04/14/20 04:22 04/14/20 05:38 Tylenol PO 650 mg Q4H PRN Administration Pain MILD(1-3)/Fever >100.5/ROBERTS Atorvastatin Calcium 40 mg 04/14/20 22:00 Lipitor PO QHS [facility] Bisacodyl 10 mg 04/14/20 04:[address] QDAY PRN Constipation Clopidogrel Bisulfate 75 mg 04/14/20 10:00 04/14/20 14:51 Plavix PO 75 mg QDAY AMY Administration Heparin Sodium (Porcine) 5,000 unit 04/14/20 06:00 04/14/20 14:51 Heparin SUB-Q 5,000 unit Q8HR [facility] Administration Magnesium Hydroxide 30 ml 04/14/20 04:22 Milk Of Magnesia PO Q4H PRN Constipation Metoclopramide HCl 10 mg 04/14/20 04:22 Reglan PO Q6H PRN Nausea And Vomiting Morphine Sulfate 2 mg 04/14/20 04:22 Morphine IV Q5MIN PRN Chest Pain unrelieved by NTG Nitroglycerin 0.4 mg 04/14/20 04:22 Nitrostat SL Q5M PRN Chest Pain Ondansetron HCl 4 mg 04/14/20 04:22 Zofran IV Q8H PRN Nausea And Vomiting Promethazine HCl 25 mg 04/14/20 04:[address] Q6H PRN Nausea And Vomiting Sodium Chloride 10 ml 04/14/20 10:00 04/14/20 14:52 Sodium Chloride Flush Syringe 10 Ml IV 10 ml BID AMY Administration Sodium Chloride 10 ml 04/14/20 04:22 Sodium Chloride Flush Syringe 10 Ml IV PRN PRN LINE FLUSH
[2020-04-15 05:04] LABS: Basophils # (Auto) 0.1 K/mm3 (0.0-0.1); Basophils % (Auto) 1.3 % (0.0-1.8); Eosinophils # (Auto) 0.3 K/mm3 (0.0-0.4); Eosinophils % (Auto) 7.4 % (0.0-4.3); Hematocrit 41.4 % (30.3-42.9); Hemoglobin 13.9 gm/dl (10.1-14.3); Lymphocytes # (Auto) 2.1 K/mm3 (1.2-5.4); Lymphocytes % (Auto) 46.6 % (13.4-35.0); Mean Corpuscular HGB Conc 34 % (30-34); Mean Corpuscular Volume 88 fl (79-97); Monocytes # (Auto) 0.3 K/mm3 (0.0-0.8); Monocytes % (Auto) 6.7 % (0.0-7.3); Platelet Count 195 K/mm3 (140-440); Red Blood Count 4.73 M/mm3 (3.65-5.03); Red Cell Distribution Width 14.5 % (13.2-15.2)
[2020-04-15 05:18] LABS: INR 1.02 (0.87-1.13)
[2020-04-15] MEDS: HEPARIN 5,000 UNIT/1 ML VIAL SUB-Q SCH ×2 (05:19→14:00)
[2020-04-15] MEDS ORDERED: ASPIRIN EC 325 MG TAB PO SCH (10:00)
[2020-04-15] MEDS: CLOPIDOGREL 75 MG TAB PO SCH (11:43)
[2020-04-15 12:36] LABS: BUN/Creatinine Ratio 16; Blood Urea Nitrogen 11 mg/dL (7-17); Calcium 8.6 mg/dL (8.4-10.2); Chol/HDL Ratio 3.61 %; HDL Cholesterol 55 mg/dL (40-59); Hemolysis Index 7; LDL Cholesterol,Direct 136 mg/dL (50-130)
[2020-04-15 12:40] VITALS: BP 154/78
--- NOTE | 2020-04-15 13:34 | Progress Note ---
Assessment and Plan Patient is a 75 y/o woman w/ a h/o HTN, asthma, GERD, who p/w left sided weakness and numbness that resolved within one hour. According to the patient's clinical findings, it is likely that she has had a TIA. Alternatively, she may have symptoms related to recent cervical spine surgery. Plan: 1. TIA: - MRI brain: No acute abnormality. - Check CTA head: pending - Check MRI cervical spine - CUS: no significant stenosis - CT head: No acute abnormality. - Echo: EF 55-60%, LA normal size, bubble study negative. - Cont. ASA - Cont. statin. LDL goal <70 - Telemetry monitoring while in house - PT/OT/ST - DVT Ppx: Recommend lovenox 2. Hypertension: - Recommend BP goal of normotension, as no evidence of stroke on MRI. - Will continue to monitor patient. Thank you for allowing me to take part in the care of this patient. Karan Weston MD Neurology This clinical encounter was provided via live telemedicine platform. Consultat aurelia service was provided for neurology to support local providers. The Acute Teleneurology team should be contacted with any neurologic worsening or clinical changes, new test results, or new patient history that is reported to or discovered by the local team following completion of the teleneurology consultation, specifically that which has the potential to impact the consultative recommendations. Patient/Family was informed the Neurology Consult would happen via TeleHealth consult by way of interactive audio and video telecommunications and consented to receiving care in this manner. Due to the potential for life-threatening deterioration due to underlying neurologic illness, and limited resources available for patient care, telemedicine was used as means of patient care. Telemedicine consultation is limited in the extent of physical exam that can be virtually provided. Time spent evaluating patient includes time for face to face visit via telemedicine, review of medical records, imaging studies and discussion of findings with providers, the patient and/or family. Subjective Date of service: 04/15/20 Principal diagnosis: TIA Interval history: No acute events overnight. Objective - Exam Narrative Exam: Patient is awake, alert, oriented X 4, follows complex commands. No dysarthria or aphasia noted. EOMI, VFF, tongue midline, bilaterally intact to LT, no facial weakness noted. 5/5 strength in all extremities. Bilaterally intact light touch. Bilaterally intact to FTN and HTS - Vital Sign Vital Signs - 12hr 04/15/20 04/15/20 04/15/20 03:56 08:00 08:07 Temperature 98.0 F 98.8 F Pulse Rate 66 68 66 Respiratory 18 18 Rate Blood Pressure 137/72 127/74 O2 Sat by Pulse 99 96 Oximetry 04/15/20 04/15/20 04/15/20 10:00 12:20 12:52 Temperature 98.8 F Pulse Rate 86 Respiratory 20 18 20 Rate Blood Pressure 154/78 O2 Sat by Pulse 97 99 Oximetry - Laboratory Findings CBC and BMP: 04/15/20 03:58 04/15/20 03:58 Abnormal Lab Findings: Abnormal Labs 04/13/20 04/13/20 04/14/20 20:49 20:49 05:13 RBC 5.10 H Hgb 14.9 H Hct 44.9 H Lymph % (Auto) 36.3 H Vermillion % (Auto) 7.5 H Eos % (Auto) 5.8 H Seg Neutrophils % Seg Neutrophils # Potassium 3.2 L Carbon Dioxide Glucose 105 H LDL Cholesterol Direct 04/14/20 04/15/20 04/15/20 05:13 03:58 03:58 RBC Hgb Hct Lymph % (Auto) 46.6 H [place] % (Auto) Eos % (Auto) 7.4 H Seg Neutrophils % 38.0 L Seg Neutrophils # 1.7 L Potassium Carbon Dioxide 21 L Glucose 110 H LDL Cholesterol Direct 136 H
--- NOTE | 2020-04-15 15:15 | Discharge Summary ---
Providers - Providers Date of Admission: 04/14/20 03:34 Date of discharge: 04/15/20 Attending physician: ERINN NORRIS 04/14/20 04:22 Consult to Cardiology [CONS] Routine Consulting Provider: PHILLIP ARMANDO Reason For Exam: chest pain Occupational Therapy Evaluate and Treat [CONS] Routine Comment: Reason For Exam: Neuro deficits Physical Therapy Evaluation and Treat [CONS] Routine Comment: Reason For Exam: Neuro deficits 04/14/20 05:28 Consult to Physician [CONS] Routine Comment: Consulting Provider: KERA GONZALEZ Physician Instructions: Reason For Exam: LEFT SIDED WEAKNESS Primary care physician: MANAGER VALIDATION Hospitalization Condition: Stable Pertinent studies: CXR head CT Brain MRI Carotid doppler 2d echo MPI stress test Hospital course: This is a 75-year-old Female with a history of hypertension, asthma, GERD, ongoing tobacco use, recent cervical spine surgery in January 2020 presented to the hospital with left-sided weakness and numbness which resolved within an hour. Patient was admitted to the hospital with acute stroke protocol, tele-neurology was consulted in the ER. Patient was not found to be a candidate for TPA. Patient was placed on antiplatelets, statin and allowed for permissive hypertension. CT head in the ER did not show any acute abnormality. Patient was further evaluated with carotid Doppler, MRI of the brain, 2D echo. MRI of the brain showed no acute infarct, Carotid Doppler showed less than 50% stenosis bilaterally, 2D echo had preserved EF, MPI stress test showed no reversible ischemia. PT OT evaluated the patient and recommended no additional need for discharge. Neurology further evaluated the patient and recommended cervical spine MRI and CTA head/neck. Patient was ambulatory and without any further neurological deficit. Patient refused CTA head/neck and was recommended to get cervical MRI as an outpatient and to follo w-up with her spine surgeon in a week. She also instructed to come back if her symptom recurs or worsened. She verbalized understanding. Patient was then discharge home in stable condition with outpatient follow-up. Discharge diagnosis and management: TIA. Continue Plavix and statin Hypertension, stable GERD, continue PPI History of asthma, stable Tobacco abuse, counseled for cessation Status post spine surgery, recommended outpatient follow-up Physical exam: GENERAL: well-developed and elderly female lying on bed appeared to be in no di scomfort. HEENT: Normocephalic. Atraumatic. No conjunctival congestion or icterus. Patient has moist mucous membranes. NECK: Supple. Trachea midline. CHEST/LUNGS: Clear to auscultated bilaterally, breathing nonlabored. No wheezes crackles or rhonchi. HEART/CARDIOVASCULAR: Regular in rate and rhythm. S1 and S2 positive. ABDOMEN: Abdomen is soft, nontender. Patient has normal bowel sounds. SKIN: There is no rash. Warm and dry. NEURO: No focal motor deficit. Follows command. MUSCULOSKELETAL: No joint effusion or tenderness. EXTRIMITY: No edema, no cyanosis or clubbing. PSYCH: Cooperative. Disposition: DC-01 TO HOME OR SELFCARE Time spent for discharge: 34 minutes Core Measure Documentation - Palliative Care Palliative Care/ Comfort Measures: Not Applicable - Core Measures Any of the following diagnoses?: stroke - Stroke Discharge Requirements Statin for LDL = or >70 mg/dl on DC: Yes Anticoag for atrial fib/atrial flutter: Not Applicable Antithrombotic for ischemic stroke: Yes Exam - Constitutional Vitals: Temp Pulse Resp BP Pulse Ox 98.8 F 86 20 154/78 99 04/15/20 12:20 04/15/20 12:20 04/15/20 12:52 04/15/20 12:20 04/15/20 12:20 Plan Activity: advance as tolerated Weight Bearing Status: Weight Bear as Tolerated Diet: low fat, low salt Additional Instructions: MRI of the cervical spine outpt Follow up with: PRIMARY CARE, [Primary Care Provider] - 7 Days Prescriptions: AtorvaSTATin [Lipitor] 40 mg PO QHS #30 tablet Clopidogrel [Plavix] 75 mg PO QDAY #30 tablet Other Discharge Orders: Physicial Therapy (Amb) Location: None Selected
--- NOTE | 2020-04-16 09:05 | Cat Scan Report ---
CT HEAD WITHOUT CONTRAST INDICATION : Strokelike symptoms. Right-sided weakness. TECHNIQUE: Axial, coronal and sagittal CT imaging was performed from the skull apex through the skul l base without contrast. All CT scans at this location are performed using CT dose reduction for ALA RA by means of automated exposure control. COMPARISON: None available. FINDINGS: PARENCHYMA: No mass, midline shift, hemorrhage, extraaxial collection or acute territorial infarctio n. VENTRICLES: Symmetric and normal in size. SOFT TISSUES: No significant abnormality of the included soft tissues/orbits. BONES: No acute osseous abnormality. SINUSES: No significant abnormality. ADDITIONAL FINDINGS: None. IMPRESSION: 1. No acute intracranial abnormality. Signer Name: Grant Velázquez MD Signed: 04/14/2020 12:15 AM Workstation Name: [email or web address]
== END 2020-04-15 18:00 | disposition home or self-care (01) ==
LOC: ED 20:23 → 4A 04-14 03:34
PROVIDERS: ADMIT Internal Medicine Geriatric Medicine; ATTEND Internal Medicine
DX: G45.9 Transient cerebral ischemic attack, unspecified (principal); R07.89 Other chest pain; I10 Essential (primary) hypertension; J45.909 Unspecified asthma, uncomplicated; K21.9 Gastro-esophageal reflux disease without esophagitis; F17.200 Nicotine dependence, unspecified, uncomplicated; Z90.710 Acquired absence of both cervix and uterus; Z79.899 Other long term (current) drug therapy; Z88.0 Allergy status to penicillin; Z88.1 Allergy status to other antibiotic agents; Z88.2 Allergy status to sulfonamides; Z88.8 Allergy status to other drugs, medicaments and biological substances; Z88.5 Allergy status to narcotic agent
CPT/HCPCS: 36415; 70450; 70551; 71046; 78452; 80048; 80061; 84484; 85025; 85027; 85610; 85670; 85730; 87641; 93005; 93017; 93306; 93880; 96372; 96374; 96375; 97161; 99285; A9270; A9502; G0378; J1644; J2060; J2270; J2785; 80320; G0480

== ENCOUNTER 2020-10-23 18:30 | Emergency (ER) | payer MEDICARE ==
[2020-10-23 20:48] LABS: Basophils # (Auto) 0.2 K/mm3 (0.0-0.1); Basophils % (Auto) 2.5 % (0.0-1.8); Eosinophils # (Auto) 0.3 K/mm3 (0.0-0.4); Eosinophils % (Auto) 4.4 % (0.0-4.3); Hematocrit 41.4 % (30.3-42.9); Hemoglobin 13.7 gm/dl (10.1-14.3); Lymphocytes # (Auto) 1.7 K/mm3 (1.2-5.4); Lymphocytes % (Auto) 24.9 % (13.4-35.0); Mean Corpuscular HGB Conc 33 % (30-34); Mean Corpuscular Volume 88 fl (79-97); Monocytes # (Auto) 0.5 K/mm3 (0.0-0.8); Monocytes % (Auto) 7.6 % (0.0-7.3); Platelet Count 192 K/mm3 (140-440); Red Blood Count 4.71 M/mm3 (3.65-5.03); Red Cell Distribution Width 13.6 % (13.2-15.2)
--- NOTE | 2020-10-23 20:54 | XRay Report ---
CHEST 1 VIEW 10/23/2020 8:51 PM INDICATION / CLINICAL INFORMATION: Chest Pain. COMPARISON: 04/13/2020 FINDINGS: SUPPORT DEVICES: None. HEART / MEDIASTINUM: No significant abnormality. LUNGS / PLEURA: No significant pulmonary or pleural abnormality. No pneumothorax. There is minimal li near scar in the right lung base which is unchanged. There is a stable 9 mm nodule in the right upper lobe ADDITIONAL FINDINGS: No significant additional findings. IMPRESSION: 1. There is a stable 9 mm nodule in the right upper lobe. No acute disease is seen Signer Name: Cristhian Al MD Signed: 10/23/2020 8:49 PM Workstation Name: [id number]
[2020-10-23 20:57] LABS: BUN/Creatinine Ratio 13; Blood Urea Nitrogen 10 mg/dL (7-17); Hemolysis Index 11
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
[2020-10-24 11:33] LABS: INR 1.01 (0.87-1.13); Partial Thromboplastin Time 33.2 Sec. (24.2-36.6)
--- NOTE | 2020-10-24 13:10 | Cat Scan Report ---
CTA CHEST WITH CONTRAST INDICATION / CLINICAL INFORMATION: Chest pain for 2 days, shortness of breath. TECHNIQUE: Axial CT images were obtained through the chest after injection of 100 cc of Omnipaque 350 IV contrast. 3 plane MIP and/or 3D reconstructions were produced. All CT scans at this location are performed using CT dose reduction for ALARA by means of automated exposure control. COMPARISON: Chest radiograph dated 10/23/[address] scan dated 09/30/2019 FINDINGS: PULMONARY ARTERIES: The main pulmonary artery and right and left pulmonary artery branches fill satis factorily with contrast. No pulmonary embolus is seen. THORACIC AORTA: There are mild atherosclerotic calcifications. There is no dissection. HEART: No significant abnormality. CORONARY ARTERY CALCIFICATION: Mild. MEDIASTINUM / LUCY: No significant abnormality. PLEURA: No pleural effusion. No pneumothorax. LUNGS: There is stable scarring in the right lung base. There is a nodule in the right upper lobe which measures 9 mm in diameter and is probably soft tissue with a small punctate calcification centrally within it. This is unchanged in size and appearance wh en compared to the prior CT scan from September 2019 ADDITIONAL FINDINGS: None. UPPER ABDOMEN: No acute findings. SKELETAL STRUCTURES: No significant osseous abnormality. IMPRESSION: 1. No CT evidence for pulmonary embolism. 2. There is a stable 9 mm nodule in the right upper lobe which is predominantly soft tissue with a sm all punctate calcification centrally within it. This is likely benign. One year follow-up chest CT is recommended to confirm stability of this nodule for total 2 years. Signer Name: Cristhian Al MD Signed: 10/24/2020 1:06 PM Workstation Name: [id number]
[2020-10-24 13:34] VITALS: BP 151/67
== END 2020-10-24 13:34 | disposition home or self-care (01) ==
LOC: ED 18:30
DX: R07.89 Other chest pain (principal); I10 Essential (primary) hypertension; K21.9 Gastro-esophageal reflux disease without esophagitis; M19.91 Primary osteoarthritis, unspecified site; J45.909 Unspecified asthma, uncomplicated; Z90.710 Acquired absence of both cervix and uterus; Z98.890 Other specified postprocedural states; F17.200 Nicotine dependence, unspecified, uncomplicated; Z79.899 Other long term (current) drug therapy; Z88.1 Allergy status to other antibiotic agents; Z88.0 Allergy status to penicillin; Z88.8 Allergy status to other drugs, medicaments and biological substances
CPT/HCPCS: 36415; 71045; 71275; 80048; 84484; 85025; 85379; 85610; 85730; 99285; Q9967; 93005